=== PATIENT | female | born 1935 | race Caucasian/White ===

== ENCOUNTER → 2020-08-03 10:00 | Outpatient (BNVA) | payer MEDICARE, SELFPAY | PROVIDERS: Family Provider Internal Medicine; PCP Internal Medicine; Visit Provider Internal Medicine | DX: I10 Essential (primary) hypertension (principal); R54 Age-related physical debility | CPT/HCPCS: 80053; 83550; 84443; 85025 ==

== ENCOUNTER 2020-08-24 06:00 | Outpatient (RCR) | payer MEDICARE, SELFPAY | END 2020-09-20 23:59 | disposition home or self-care (01) | LOC: TPT 06:00 | PROVIDERS: PCP Internal Medicine; Referring Provider Internal Medicine; Visit Provider Internal Medicine | DX: R54 Age-related physical debility (principal) | CPT/HCPCS: 97110; 97112; 97116; 97162 ==

== ENCOUNTER 2020-09-21 06:00 | Outpatient (RCR) | payer MEDICARE, SELFPAY | END 2020-10-20 23:59 | disposition home or self-care (01) | LOC: TPT 06:00 | PROVIDERS: PCP Internal Medicine; Referring Provider Internal Medicine; Visit Provider Internal Medicine | DX: R54 Age-related physical debility (principal) | CPT/HCPCS: 97110; 97116 ==

== ENCOUNTER 2021-03-01 10:12 | Outpatient (CLI) | payer MEDICARE, SELFPAY ==
--- NOTE | 2021-03-01 10:20 | XRR_ITS ---
PROCEDURE INFORMATION: Exam: XR Right Tibia and Fibula Exam date and time: 03/01/2021 10:20 AM Age: 85 years old Clinical indication: Injury or trauma; Fall; Blunt trauma; Right; Patient HX: Fell 10 days ago; C/O RT hip and knee pain; Additional info: Fall at home TECHNIQUE: Imaging protocol: XR Right tibia and fibula. Views: 2 views. Total images: 2 COMPARISON: No relevant prior studies available. FINDINGS: Bones/joints: No radiographically visible fracture. Advanced osteoporosis. Soft tissues: Unremarkable. XR/XR tibia fibula RT 2V [id number] IMPRESSION: No radiographically visible fracture. Radiation Dose CTDIVOL = (mGy): DLP = (mGy-cm)
--- NOTE | 2021-03-01 10:20 | XR_ITS ---
WS: [id number] RIGHT KNEE: 2 VIEW(S) TECHNIQUE: AP and lateral. HISTORY: Fall at home COMPARISON: None available. No fracture or dislocation. No joint space narrowing or osteophytes. No joint effusion. Mild osteopenia. Extensive peripheral arterial calcifications. XR/XR knee RT 1-2V [id number] IMPRESSION: Osteopenia with no fracture.
--- NOTE | 2021-03-01 10:20 | XRR_ITS ---
PROCEDURE INFORMATION: Exam: XR Right Hip Exam date and time: 03/01/2021 10:20 AM Age: 85 years old Clinical indication: Injury or trauma; Fall; Blunt trauma (contusions or hematomas); Right; Patient HX: Fell 10 days ago; C/O pain RT hip; Additional info: Fall at home TECHNIQUE: Imaging protocol: XR Right hip. Views: 1 view hip with pelvis when performed. Total images: 2 COMPARISON: No relevant prior studies available. FINDINGS: Bones/joints: No visible fracture, subluxation, or dislocation. No visible significant degenerative disease. Advanced osteoporosis. Soft tissues: Unremarkable. XR/XR hip RT 2-3V wo/w pel* [id number] IMPRESSION: No visible fracture. Radiation Dose CTDIVOL = (mGy): DLP = (mGy-cm)
== END 2021-03-01 10:13 | disposition home or self-care (01) ==
PROVIDERS: PCP Internal Medicine; Visit Provider Internal Medicine
DX: M25.551 Pain in right hip (principal); M25.561 Pain in right knee; W19.XXXA Unspecified fall, initial encounter; M85.861 Other specified disorders of bone density and structure, right lower leg
CPT/HCPCS: 73502; 73560; 73590

== ENCOUNTER 2023-03-10 16:54 | Observation (INO) | payer MEDICARE, SELFPAY ==
[2023-03-10] VITALS (7 sets, daily range): BP systolic 149–226; BP diastolic 84–138; PULSE 80–126; RESP 16–23; TEMP 36.6; O2SAT 92–97; BMI 25.4; BMI 18.1
--- NOTE | 2023-03-10 17:05 | ECG_ITS ---
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 Measurements Intervals [place] Rate: 111 P: 86 KS: 172 QRS: 38 QRSD: 83 T: 89 QT: 305 QTc: 416 Interpretive Statements SINUS TACHYCARDIA WITH OCCASIONAL SUPRAVENTRICULAR PREMATURE COMPLEXES LEFT VENTRICULAR HYPERTROPHY AND ST-T CHANGE [VOLTAGE CRITERIA PLUS ST/T ABNORMALITY] Compared to ECG 03/05/2018 10:06:16 ST (T wave) deviation now present Sinus rhythm no longer present Electronically Signed On 03-11-2023 22:14:44 [employer] DEPOSITING MACHINE OPERATOR by Christal Dior M.D. [id number]
--- NOTE | 2023-03-10 17:06 | CTR_ITS ---
PROCEDURE INFORMATION: Exam: CT Cervical Spine Without Contrast Exam date and time: 03/10/2023 5:19 PM Age: 87 years old Clinical indication: Injury or trauma; Fall; Other: Unknown; Additional info: Fall, hit top of head TECHNIQUE: Imaging protocol: Computed tomography of the cervical spine without contrast. Radiation optimization: All CT scans at this facility use at least one of these dose optimization techniques: automated exposure control; mA and/or kV adjustment per patient size (includes targeted exams where dose is matched to clinical indication); or iterative reconstruction. REPORTING DATA: Count of CT and Cardiac NM exams in prior 12 months: This patient has received 0 known CTs and 0 known cardiac nuclear medicine studies in the 12 months prior to the current study. COMPARISON: CT head wo con* [id number] 03/10/2023 5:19 PM RADIATION DOSE METRICS: Total DLP (mGy-cm): 447.7 FINDINGS: Bones/joints: Cervical curvature and alignment is unremarkable. Degenerative changes mid-lower cervical spine with disc space narrowing and endplate osteophytic lipping. No severe stenosis of the central canal or neural foramina evident. No fracture, dislocation or traumatic spondylolisthesis detected. Lungs: Lung apices are normal. Soft tissues: Unremarkable. CT/CT cervical spin wo con* [id number] IMPRESSION: No acute bony abnormalities.
--- NOTE | 2023-03-10 17:06 | XRR_ITS ---
PROCEDURE INFORMATION: Exam: XR Left Shoulder Exam date and time: 03/10/2023 5:53 PM Age: 87 years old Clinical indication: Injury or trauma; Patient HX: Lt shoulder/upper arm pain post fall TECHNIQUE: Imaging protocol: Radiologic exam of the left shoulder. Views: 2 or more views. COMPARISON: MR shoulder LT wo/w con [id number] 05/01/2016 10:01 AM FINDINGS: Bones/joints: There is an obliquely oriented fracture through the proximal shaft of the left humerus that extends for 6 cm with 1 cm distraction and medial displacement of the distal fracture component. Remainder the visualized osseous structures are intact. There is no dislocation. Soft tissues: Normal. XR/XR shoulder LT min 2V* [id number] IMPRESSION: Acute, displaced obliquely oriented fracture proximal humeral shaft.
--- NOTE | 2023-03-10 17:06 | CTR_ITS ---
PROCEDURE INFORMATION: Exam: CT Head Without Contrast Exam date and time: 03/10/2023 5:19 PM Age: 87 years old Clinical indication: Injury or trauma; Fall; Other: Unknown; Additional info: Fall, hit top of head, 81mg asa TECHNIQUE: Imaging protocol: Computed tomography of the head without contrast. Radiation optimization: All CT scans at this facility use at least one of these dose optimization techniques: automated exposure control; mA and/or kV adjustment per patient size (includes targeted exams where dose is matched to clinical indication); or iterative reconstruction. REPORTING DATA: Count of CT and Cardiac NM exams in prior 12 months: This patient has received 0 known CTs and 0 known cardiac nuclear medicine studies in the 12 months prior to the current study. COMPARISON: CT head wo con* [id number] 03/20/2018 7:29 PM RADIATION DOSE METRICS: Total DLP (mGy-cm): 901.3 FINDINGS: Brain: There is no evidence of intracranial hemorrhage. There are no areas of mass effect, edema or midline shift. There are diffuse indistinct areas of decreased attenuation involving the periventricular white matter likely secondary to chronic white matter microvascular changes. There is age-related cerebral volume loss responsible for prominence of the cortical sulci. Cerebral ventricles: There is mild proportionate ventricular dilatation believed secondary to age related cerebral volume loss. Paranasal sinuses: Visualized sinuses are unremarkable. No fluid levels. Mastoid air cells: Visualized mastoid air cells are well aerated. Bones/joints: Unremarkable. No acute fracture. Soft tissues: Unremarkable. CT/CT head wo con* [id number] IMPRESSION: No acute intracranial abnormalities.
--- NOTE | 2023-03-10 17:10 | W.ED.EXTPRO ---
Documented by User: ROCKY Ambriz 03/10/23 21:36 HPI - Extremity Problem General: Chief complaint: Extremity Injury, Upper Stated complaint: LEFT SHOULDER/RIBS PAIN S/P FALL Time Seen by Provider: 03/10/23 16:58 Source: patient and EMS Mode of arrival: EMS Limitations: no limitations History of Present Illness: Patient presents to the emergency department today brought by EMS for evaluation treatment of injury sustained after falling at home. EMS reports patient was in her bedroom and went to reach for a hairbrush when she accidentally fell. Patient fell between her bed and the dresser. In the fall, patient states she impacted the top of her head and is tender in this area. However, she is more concerned about left shoulder and left rib pain. Patient presents unwilling to perform any range of motion of the left arm. She is keeping her elbow bent and closely to her side. She is still moving her fingers and is able to grasp with her left hand. EMS reports providing 4 mg of Zofran and 50 of fentanyl for pain. Patient was found to be extremely hypertensive and tachycardic. Patient does not have any previous history of high blood pressure and only reported medications being an 81 mg aspirin and duloxetine. They note patient has a history of easy bruising and is found to have a half dollar size hematoma to the right anterior, distal upper arm approximately 4 cm superior to the AC space. They indicate this was an old injury. Patient appears to have a very small abrasion to the posterior right elbow with a little bit of bleeding. Patient denies right-sided chest pain or abdominal pains. She has issues with incontinence and is currently in an adult diaper. Review of Systems General: Reports: 10 or more systems reviewed and unremarkable except in HPI and below PFSH ED PFSH: Medical History (Updated 03/11/23 @ 13:53 by Tamra Bender MD) Cystocele with prolapse Hypertension Urge incontinence of urine Surgical History (Updated 03/10/23 @ 22:06 by Miguel Casper MD) History of appendectomy Hx of breast biopsy Hx of hernia repair Hx of hysterectomy Family History Mother Diabetes Social History Smoking and tobacco/nicotine status: former use of tobacco/nicotine Quit status (tobacco/nicotine): has quit using Year quit tobacco: 2011 Second hand smoke exposure: No Alcohol intake: current Alcohol intake frequency: few times a week Alcohol type: wine Substance/Drug Use: never Physical Exam Const: COMMON NORMALS: patient oriented x3 and alert OTHER: Patient does not appear toxic and is able to answer her own questions HENMT: COMMON NORMALS: normocephalic, atraumatic and hearing grossly normal bilaterally HEAD & SCALP: normocephalic and atraumatic Eye: COMMON NORMALS: Equal, round and reactive pupils present, EOMs intact bilaterally and conjunctivae normal CONJUNCTIVA: Yes conjunctivae normal PUPIL: Yes Equal, round and reactive pupils present Neck/C-Spine: OTHER: Patient indicated no tenderness on palpation in the cervical vertebral region. No palpable step-offs. Lymph: LYMPHATIC: no lymphadenopathy noted Chest: OTHER: Unable to evaluate location of pain to the left chest as the patient's left arm is covering this area and she refuses to move it. Patient was nontender on palpation to the ribs on the right side and nontender to the sternum. Resp: COMMON NORMALS: normal respiratory effort, No retractions and No use of accessory muscles Cardio: COMMON NORMALS: regular rate RATE: regular rate GI: OTHER: Abdomen was nontender. Patient with an extremely thin frame and scaphoid abdomen. Patient did request abdominal exam be deferred due to her need to urinate and palpation worsening her urge to urinate. Back/Pelvis: OTHER: Patient was not tender on palpation to the pelvis or hips. Extremity: NARRATIVE EXTREMITY EXAM: Patient is moving her legs bilaterally and her right arm however, patient refuses to move left arm. Left arm is With elbow fully bent and held closely to her side. 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 Neuro: COMMON NORMALS: patient oriented x3 SENSORIUM/ORIENTATION: Yes alert Psych: COMMON NORMALS: mental status grossly normal, Normal thought process present, cooperative and normal affect THOUGHT PROCESS: Normal thought process present Skin: COMMON NORMALS: no rashes or lesions noted and turgor normal NARRATIVE SKIN EXAM: Patient with various stages of bruising noted on her extremities. Patient with a quarter dollar size hematoma noted to the anterior distal right upper arm. Patient with a small abrasion to the posterior right elbow. GENERAL SKIN EXAM: no rashes or lesions noted and turgor normal Course Vital Signs: Vital signs: Vital Signs Temperature 97.4 F L 03/11/23 16:42 Pulse Rate 67 03/11/23 16:42 Respiratory Rate 16 03/11/23 16:42 Blood Pressure 122/71 03/11/23 16:42 Pulse Oximetry 97 03/11/23 16:42 Oxygen Delivery Me thod Room Air 03/11/23 16:42 MDM - Extremity (Nontraumatic) Medical Decision Making Patient presented to the ER via EMS for multiple injuries sustained after falling at home today. Given the reports of impact to the patient's head we did CT the head and neck. We also requested imaging of the patient's left shoulder and left ribs. CT of head and neck were negative but, there was findings of a mid humeral shaft fracture. Due to limited ambulation from her injuries and urinary incontinence, indwelling James catheter was placed. However, urine in the bag is obvious for gross hematuria. They did not notice any bleeding or blood in her urine today until the catheter was placed. Most likely secondary to trauma. Patient presented with elevated blood pressure readings. She has no previous history of high blood pressure but, was in quite a bit of pain. Patient's blood pressure has come down quite a bit. Upon my last personal evaluation, systolic was in the 160s and patient appeared much more comfortable. Patient received fentanyl and Dilaudid for her pain and is currently indicating a level of comfort and not requesting anything else for pain. Patient's is also elderly and in a wheelchair. Patient is most likely going to require a full assist at home so, I did discuss the case with both Dr. Blankenship and Dr. Billy and Dr. Billy recommended calling the hospitalist for admission. I reached out and spoke with Dr. Cross but, as patient does not have any significant underlying medical issues, he indicated he would be a consult but patient should be admitted under orthopedic services. I then called Dr. Strong to discuss the patient's injuries and recommendation by hospitalist for Ortho admit and he indicated patient did not require admission at this time. Discussed the case with Dr. Blankenship as I am very concerned that the patient will not be able to recuperate at home. Patient will require full assist and was already a concern for injuries due to falling and now with a splint, would be at higher risk. Dr. Blankenship indicated he would reach out and speak with the hospitalist services again to discuss. He indicated that after speaking with the hospitalist, they were willing to admit. Orthopedics was notified for a consult on the floor as well. Patient and family were notified of the admission and seemed in agreement to the treatment plan. Differential Diagnosis Unlikely herpes zoster, gout, cellulitis, superficial thrombophlebitis, deep venous thrombosis of upper extremity, lower extremity edema or deep vein thrombosis of lower extremity Lab Data 03/11/23 02:26 03/11/23 02:26 Radiology Impressions Cervical Spine CT 03/10/23 17:06 IMPRESSION: No acute bony abnormalities. Head CT 03/10/23 17:06 IMPRESSION: No acute intracranial abnormalities. Shoulder X-Ray 03/10/23 17:06 IMPRESSION: Acute, displaced obliquely oriented fracture proximal humeral shaft. Ribs X-Ray 03/10/23 17:17 IMPRESSION: 1. Acute displaced fracture left humeral shaft. 2. No displaced left rib fractures detected. 3. Stable 2 cm pulmonary nodule right mid lung zone likely benign. Humerus X-Ray 03/10/23 17:58 IMPRESSION: Acute displaced fracture proximal shaft left humerus. Humerus CT 03/10/23 21:00 IMPRESSION: Acute humeral shaft fracture, as above. Hip X-Ray 03/11/23 07:52 IMPRESSION: Questionable fractures of the left superior and inferior pubic rami. Recommend CT pelvis to further assess. Laboratory Results WBC 8.24 10^3/uL (3.29-11.43) 03/10/23 17:11 RBC 4.48 10^6/uL (3.85-5.65) 03/10/23 17:11 Hgb 12.70 g/dL (11.27-16.99) 03/10/23 17:11 Hct 38.6 % (36-47) 03/10/23 17:11 MCV 86.2 fl (85-98) 03/10/23 17:11 MCH 28.3 pg (27-33) 03/10/23 17:11 MCHC 32.9 g/dL (30-55) 03/10/23 17:11 RDW 14.6 % (12.1-15.1) 03/10/23 17:11 Plt Count 297 10^3/cmm (157-399) 03/10/23 17:11 MPV 9.2 fL (7.4-10.4) 03/10/23 17:11 Neut % (Auto) 54.0 % 03/10/23 17:11 Lymph % (Auto) 31.9 % 03/10/23 17:11 [place] % (Auto) 5.3 % 03/10/23 17:11 Eos % (Auto) 7.6 % 03/10/23 17:11 Baso % (Auto) 0.8 % 03/10/23 17:11 Neut # (Auto) 4.44 10^3/uL (1.8-7.7) 03/10/23 17:11 Lymph # (Auto) 2.6 10^3/uL (0.8-4.8) 03/10/23 17:11 [place] # (Auto) 0.4 10^3/uL (0.2-0.9) 03/10/23 17:11 Eos # (Auto) 0.6 10^3/uL (0.0-0.8) 03/10/23 17:11 Baso # (Auto) 0.1 10^3/uL (0.0-0.1) 03/10/23 17:11 Nucleated RBC % (auto) 0 % 03/10/23 17:11 Nucleated RBCs # 0.0 /100WBC 03/10/23 17:11 Sodium 139 mmol/L (136-145) 03/10/23 17:11 Potassium 3.7 mmol/L (3.5-5.1) 03/10/23 17:11 Chloride 104 mmol/L (98-107) 03/10/23 17:11 Carbon Dioxide 21 mmol/L (22-29) L 03/10/23 17:11 Anion Gap 17.7 (5-19) 03/10/23 17:11 BUN 20 mg/dL (8-23) 03/10/23 17:11 Creatinine 0.8 mg/dL (0.5-0.9) 03/10/23 17:11 GFR Calculation Not Reportable 03/10/23 17:11 Glucose 104 mg/dL (65-115) 03/10/23 17:11 Calculated Osmolality 291 mOsm/kg (285-295) 03/10/23 17:11 Calcium 9.1 mg/dL (8.5-10.5) 03/10/23 17:11 Iron 73 ug/dL (37-145) 03/10/23 17:11 TIBC 234 mcg/dl 03/10/23 17:11 % Saturation 31.1 % (20-50) 03/10/23 17:11 Unsat Iron Binding 161 ug/dL (112-347) 03/10/23 17:11 Total Bilirubin 0.4 mg/dL (0.15-1.2) 03/10/23 17:11 AST 15 U/L (0-32) 03/10/23 17:11 ALT 6 U/L (0-33) 03/10/23 17:11 Alkaline Phosphatase 110 U/L (35-105) H 03/10/23 17:11 Total Protein 7.5 g/dL (6.6-8.7) 03/10/23 17:11 Albumin 4.3 g/dL (3.5-5.2) 03/10/23 17:11 Globulin 3.2 g/dL (1.3-4.6) 03/10/23 17:11 Vitamin B12 437 pg/mL (232-1245) 03/10/23 17:11 TSH 6.52 uIU/mL (0.27-4.20) H 03/10/23 17:11 Urine Color Red (Yellow) A 03/10/23 17:45 Urine Appearance Cloudy (CLEAR) A 03/10/23 17:45 Urine pH 8 (5-7) H 03/10/23 17:45 Ur Specific [place] 1.015 (1.005-1.030) 03/10/23 17:45 Urine Protein 3+ (Negative) H 03/10/23 17:45 Urine Glucose (UA) Norm (Normal) 03/10/23 17:45 Urine Ketones Negative (Negative) 03/10/23 17:45 Urine Blood 3+ (Negative) H 03/10/23 17:45 Urine Nitrate Negative (Negative) 03/10/23 17:45 Urine Bilirubin Neg (Negative) 03/10/23 17:45 Prot Sulfosalicylic Acd Positive (Negative) 03/10/23 17:45 Urine Urobilinogen Norm mg/dL (Negative) 03/10/23 17:45 Ur Leukocyte Esterase Trace (Negative) H 03/10/23 17:45 Urine RBC >100 /hpf (0-2) H 03/10/23 17:45 Urine WBC 10-15 /hpf (0-5) H 03/10/23 17:45 Ur Squamous Epith Cells Rare /hpf (0-5) 03/10/23 17:45 Amorphous Sediment Not Reportable 03/10/23 17:45 Urine Bacteria 2+ /hpf (NONE) H 03/10/23 17:45 All radiology interpretation(s) finalized by discharge Discharge Plan Discharge Patient Disposition: Admitted As Inpatient Admit Provider: Miguel Casper Clinical Impression: Closed left humeral fracture Condition: Stable Coding Level of Care Code ED Label Drier for Chg Fwd Documented by User: Héctor Blankenship, 03/11/23 17:38 HPI - Extremity Problem General: Chief complaint: Extremity Injury, Upper Stated complaint: LEFT SHOULDER/RIBS PAIN S/P FALL Time Seen by Provider: 03/10/23 16:58 [facility] ED PFSH: Medical History (Updated 03/11/23 @ 13:53 by Tamra Bender MD) Cystocele with prolapse Hypertension Urge incontinence of urine Surgical History (Updated 03/10/23 @ 22:06 by Miguel Casper MD) History of appendectomy Hx of breast biopsy Hx of hernia repair Hx of hysterectomy Family History Mother Diabetes Social History Smoking and tobacco/nicotine status: former use of tobacco/nicotine Quit status (tobacco/nicotine): has quit using Year quit tobacco: 2011 Second hand smoke exposure: No Alcohol intake: current Alcohol intake frequency: few times a week Alcohol type: wine Substance/Drug Use: never Course Vital Signs: Vital signs: Vital Signs Temperature 97.4 F L 03/11/23 16:42 Pulse Rate 67 03/11/23 16:42 Respiratory Rate 16 03/11/23 16:42 Blood Pressure 122/71 03/11/23 16:42 Pulse Oximetry 97 03/11/23 16:42 Oxygen Delivery Me thod Room Air 03/11/23 16:42 MDM - Extremity (Nontraumatic) Medical Decision Making Patient presented to the ER via EMS for multiple injuries sustained after falling at home today. Given the reports of impact to the patient's head we did CT the head and neck. We also requested imaging of the patient's left shoulder and left ribs. CT of head and neck were negative but, there was findings of a mid humeral shaft fracture. Due to limited ambulation from her injuries and urinary incontinence, indwelling James catheter was placed. However, urine in the bag is obvious for gross hematuria. They did not notice any bleeding or blood in her urine today until the catheter was placed. Most likely secondary to trauma. Patient presented with elevated blood pressure readings. She has no previous history of high blood pressure but, was in quite a bit of pain. Patient's blood pressure has come down quite a bit. Upon my last personal evaluation, systolic was in the 160s and patient appeared much more comfortable. Patient received fentanyl and Dilaudid for her pain and is currently indicating a level of comfort and not requesting anything else for pain. Patient's is also elderly and in a wheelchair. Patient is most likely going to require a full assist at home so, I did discuss the case with both Dr. Blankenship and Dr. Billy and Dr. Billy recommended calling the hospitalist for admission. I reached out and spoke with Dr. Cross but, as patient does not have any significant underlying medical issues, he indicated he would be a consult but patient should be admitted under orthopedic services. I then called Dr. Strong to discuss the patient's injuries and recommendation by hospitalist for Ortho admit and he indicated patient did not require admission at this time. Discussed the case with Dr. Blankenship as I am very concerned that the patient will not be able to recuperate at home. Patient will require full assist and was already a concern for injuries due to falling and now with a splint, would be at higher risk. Dr. Blankenship indicated he would reach out and speak with the hospitalist services again to discuss. He indicated that after speaking with the hospitalist, they were willing to admit. Orthopedics was notified for a consult on the floor as well. Patient and family were notified of the admission and seemed in agreement to the treatment plan. This patient was originally seen by Mrs. Drew PA-C. I agree with her history, evaluation, and treatment. Lab Data 03/11/23 02:26 03/11/23 02:26 Radiology Impressions Cervical Spine CT 03/10/23 17:06 IMPRESSION: No acute bony abnormalities. Head CT 03/10/23 17:06 IMPRESSION: No acute intracranial abnormalities. Shoulder X-Ray 03/10/23 17:06 IMPRESSION: Acute, displaced obliquely oriented fracture proximal humeral shaft. Ribs X-Ray 03/10/23 17:17 IMPRESSION: 1. Acute displaced fracture left humeral shaft. 2. No displaced left rib fractures detected. 3. Stable 2 cm pulmonary nodule right mid lung zone likely benign. Humerus X-Ray 03/10/23 17:58 IMPRESSION: Acute displaced fracture proximal shaft left humerus. Humerus CT 03/10/23 21:00 IMPRESSION: Acute humeral shaft fracture, as above. Hip X-Ray 03/11/23 07:52 IMPRESSION: Questionable fractures of the left superior and inferior pubic rami. Recommend CT pelvis to further assess. Laboratory Results WBC 8.24 10^3/uL (3.29-11.43) 03/10/23 17:11 RBC 4.48 10^6/uL (3.85-5.65) 03/10/23 17:11 Hgb 12.70 g/dL (11.27-16.99) 03/10/23 17:11 Hct 38.6 % (36-47) 03/10/23 17:11 MCV 86.2 fl (85-98) 03/10/23 17:11 MCH 28.3 pg (27-33) 03/10/23 17:11 MCHC 32.9 g/dL (30-55) 03/10/23 17:11 RDW 14.6 % (12.1-15.1) 03/10/23 17:11 Plt Count 297 10^3/cmm (157-399) 03/10/23 17:11 MPV 9.2 fL (7.4-10.4) 03/10/23 17:11 Neut % (Auto) 54.0 % 03/10/23 17:11 Lymph % (Auto) 31.9 % 03/10/23 17:11 [place] % (Auto) 5.3 % 03/10/23 17:11 Eos % (Auto) 7.6 % 03/10/23 17:11 Baso % (Auto) 0.8 % 03/10/23 17:11 Neut # (Auto) 4.44 10^3/uL (1.8-7.7) 03/10/23 17:11 Lymph # (Auto) 2.6 10^3/uL (0.8-4.8) 03/10/23 17:11 [place] # (Auto) 0.4 10^3/uL (0.2-0.9) 03/10/23 17:11 Eos # (Auto) 0.6 10^3/uL (0.0-0.8) 03/10/23 17:11 Baso # (Auto) 0.1 10^3/uL (0.0-0.1) 03/10/23 17:11 Nucleated RBC % (auto) 0 % 03/10/23 17:11 Nucleated RBCs # 0.0 /100WBC 03/10/23 17:11 Sodium 139 mmol/L (136-145) 03/10/23 17:11 Potassium 3.7 mmol/L (3.5-5.1) 03/10/23 17:11 Chloride 104 mmol/L (98-107) 03/10/23 17:11 Carbon Dioxide 21 mmol/L (22-29) L 03/10/23 17:11 Anion Gap 17.7 (5-19) 03/10/23 17:11 BUN 20 mg/dL (8-23) 03/10/23 17:11 Creatinine 0.8 mg/dL (0.5-0.9) 03/10/23 17:11 GFR Calculation Not Reportable 03/10/23 17:11 Glucose 104 mg/dL (65-115) 03/10/23 17:11 Calculated Osmolality 291 mOsm/kg (285-295) 03/10/23 17:11 Calcium 9.1 mg/dL (8.5-10.5) 03/10/23 17:11 Iron 73 ug/dL (37-145) 03/10/23 17:11 TIBC 234 mcg/dl 03/10/23 17:11 % Saturation 31.1 % (20-50) 03/10/23 17:11 Unsat Iron Binding 161 ug/dL (112-347) 03/10/23 17:11 Total Bilirubin 0.4 mg/dL (0.15-1.2) 03/10/23 17:11 AST 15 U/L (0-32) 03/10/23 17:11 ALT 6 U/L (0-33) 03/10/23 17:11 Alkaline Phosphatase 110 U/L (35-105) H 03/10/23 17:11 Total Protein 7.5 g/dL (6.6-8.7) 03/10/23 17:11 Albumin 4.3 g/dL (3.5-5.2) 03/10/23 17:11 Globulin 3.2 g/dL (1.3-4.6) 03/10/23 17:11 Vitamin B12 437 pg/mL (232-1245) 03/10/23 17:11 TSH 6.52 uIU/mL (0.27-4.20) H 03/10/23 17:11 Urine Color Red (Yellow) A 03/10/23 17:45 Urine Appearance Cloudy (CLEAR) A 03/10/23 17:45 Urine pH 8 (5-7) H 03/10/23 17:45 Ur Specific [place] 1.015 (1.005-1.030) 03/10/23 17:45 Urine Protein 3+ (Negative) H 03/10/23 17:45 Urine Glucose (UA) Norm (Normal) 03/10/23 17:45 Urine Ketones Negative (Negative) 03/10/23 17:45 Urine Blood 3+ (Negative) H 03/10/23 17:45 Urine Nitrate Negative (Negative) 03/10/23 17:45 Urine Bilirubin Neg (Negative) 03/10/23 17:45 Prot Sulfosalicylic Acd Positive (Negative) 03/10/23 17:45 Urine Urobilinogen Norm mg/dL (Negative) 03/10/23 17:45 Ur Leukocyte Esterase Trace (Negative) H 03/10/23 17:45 Urine RBC >100 /hpf (0-2) H 03/10/23 17:45 Urine WBC 10-15 /hpf (0-5) H 03/10/23 17:45 Ur Squamous Epith Cells Rare /hpf (0-5) 03/10/23 17:45 Amorphous Sediment Not Reportable 03/10/23 17:45 Urine Bacteria 2+ /hpf (NONE) H 03/10/23 17:45 Discharge Plan Discharge Patient Disposition: Admitted As Inpatient Admit Provider: Miguel Casper Clinical Impression: Closed left humeral fracture Condition: Stable Coding Level of Care Code ED Label Drier for Luigi Ramirez
[2023-03-10 17:15] LABS: Basophils # 0.1 10^3/uL (0.0-0.1); Basophils % 0.8 %; Eosinophils # 0.6 10^3/uL (0.0-0.8); Eosinophils % 7.6 %; Hematocrit 38.6 % (36-47); Lymphocytes # 2.6 10^3/uL (0.8-4.8); Lymphocytes % 31.9 %; Mean Corpuscular HGB Conc 32.9 g/dL (30-55); Mean Corpuscular Hemoglobin 28.3 pg (27-33); Mean Corpuscular Volume 86.2 fl (85-98); Mean Platelet Volume 9.2 fL (7.4-10.4); Monocytes # 0.4 10^3/uL (0.2-0.9); Monocytes % 5.3 %; Neutrophils # 4.44 10^3/uL (1.8-7.7); Nucleated Red Blood Cells % 0 %; Platelet Count 297 10^3/cmm (157-399); Red Blood Count 4.48 10^6/uL (3.85-5.65); Red Cell Distribution Width 14.6 % (12.1-15.1); White Blood Count 8.24 10^3/uL (3.29-11.43)
--- NOTE | 2023-03-10 17:17 | XRR_ITS ---
PROCEDURE INFORMATION: Exam: XR Left Ribs with PA Chest Exam date and time: 03/10/2023 6:03 PM Age: 87 years old Clinical indication: Injury or trauma; Rib area, left side; Swelling; Patient HX: Lt rib pain post fall TECHNIQUE: Imaging protocol: Radiologic exam of the left ribs with PA chest. Views: 3 views COMPARISON: CR XR chest 1V [id number] 03/20/2018 7:24 PM FINDINGS: Lungs: 2 cm circumscribed pulmonary nodule right mid lung zone unchanged from 2018 likely benign. Lung sepulveda are clear without infiltrates. Pleural spaces: Unremarkable. No pleural effusion. No pneumothorax. Heart/Mediastinum: Unremarkable. No cardiomegaly. Bones/joints: Acute obliquely oriented fracture proximal shaft left humerus. No displaced rib fractures detected. XR/XR ribs LT mn 3V w CXR1V [id number] IMPRESSION: 1. Acute displaced fracture left humeral shaft. 2. No displaced left rib fractures detected. 3. Stable 2 cm pulmonary nodule right mid lung zone likely benign.
[2023-03-10 17:37] LABS: Alanine Aminotransferase 6 U/L (0-33); Albumin Level 4.3 g/dL (3.5-5.2); Alkaline Phosphatase 110 U/L (35-105); Anion Gap 17.7 (5-19); Aspartate Amino Transferase 15 U/L (0-32); Blood Urea Nitrogen 20 mg/dL (8-23); Calcium 9.1 mg/dL (8.5-10.5); Carbon Dioxide 21 mmol/L (22-29); Chloride 104 mmol/L (98-107); Globulin 3.2 g/dL (1.3-4.6); Glucose 104 mg/dL (65-115); Osmolality Calculated 291 mOsm/kg (285-295); Potassium 3.7 mmol/L (3.5-5.1); Sodium 139 mmol/L (136-145); Total Bilirubin 0.4 mg/dL (0.15-1.2); Total Protein 7.5 g/dL (6.6-8.7)
[2023-03-10] MEDS: HYDROmorphone 1 mg/mL INJ 1 mL 0.5 MG IVP (17:54)
--- NOTE | 2023-03-10 17:58 | XRR_ITS ---
PROCEDURE INFORMATION: Exam: XR Left Humerus Exam date and time: 03/10/2023 5:59 PM Age: 87 years old Clinical indication: Injury or trauma; Patient HX: Lt shoulder/upper arm pain post fall TECHNIQUE: Imaging protocol: Radiologic exam of the left humerus. Views: 2 or more views. COMPARISON: CR XR shoulder LT min 2V* [id number] 03/10/2023 5:53 PM FINDINGS: Bones/joints: There is an acute obliquely oriented displaced fracture of the proximal humeral shaft with 1 cm distraction and medial displacement of the distal fracture component. Fracture extends for 6 cm in length. Remainder of the osseous structures are intact. Soft tissues: Normal. XR/[place] [id number] IMPRESSION: Acute displaced fracture proximal shaft left humerus.
[2023-03-10 18:06] LABS: Add Urine Microscopic? YES; Bilirubin Urine Neg (Negative); Blood Urine 3+ (Negative); Glucose Urine UA Norm (Normal); Ketones Urine Negative (Negative); Leukocyte Esterase Urine Trace (Negative); Nitrate Urine Negative (Negative); Protein Urine 3+ (Negative); RBC Urine >100 /hpf (0-2); Specific Gravity, Urine 1.015 (1.005-1.030); Urine Appearance Cloudy (CLEAR); Urine Color Red (Yellow); Urobilinogen Urine Norm (Negative); pH Urine 8 (5-7)
[2023-03-10 18:07] LABS: Add Urine Culture? Yes; Bacteria Urine 2+ /hpf; Squamous Epithelial Cell Urine RARE /hpf (0-5); Sulfosalicylic Acid Urine Positive (Negative)
--- NOTE | 2023-03-10 21:00 | CTR_ITS ---
PROCEDURE INFORMATION: Exam: CT Left Upper Extremity Without Contrast, Upper Arm Exam date and time: 03/10/2023 9:10 PM Age: 87 years old Clinical indication: Injury or trauma; Blunt trauma (contusions or hematomas); Arm, upper; Left; Patient HX: Fall with comminuted fracture of proximal humerus. ; Additional info: L humerus fracture TECHNIQUE: Imaging protocol: Computed tomography of the left upper extremity without contrast. Exam focused on the upper arm. Radiation optimization: All CT scans at this facility use at least one of these dose optimization techniques: automated exposure control; mA and/or kV adjustment per patient size (includes targeted exams where dose is matched to clinical indication); or iterative reconstruction. REPORTING DATA: Count of CT and Cardiac NM exams in prior 12 months: This patient has received 0 known CTs and 0 known cardiac nuclear medicine studies in the 12 months prior to the current study. COMPARISON: [place] [id number] 03/10/2023 5:59 PM RADIATION DOSE METRICS: Total DLP (mGy-cm): 910.52 FINDINGS: Bones/joints: Acute, mildly comminuted humeral shaft fracture with mild fracture foreshortening/overlap, approximately 1/2 shaft width dorsal displacement of the distal humeral shaft fragment and mild apex dorsal angulation. Surrounding soft tissue swelling/hematoma. Glenohumeral, ulnotrochlear, and radiocapitellar alignment grossly preserved. Decreased osseous mineralization. Multifocal osteoarthritis. Soft tissues: See Bones/joints finding. CT/CT humerus LT wo con* [id number] IMPRESSION: Acute humeral shaft fracture, as above.
--- NOTE | 2023-03-10 22:03 | PM.HP ---
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 She tried calling her PCP but could not get through and pain was not subsided so presented to the ER today. In the ER she was found to have left acute displaced humeral fracture. On presentation to the ER patient was tachycardic and hypotensive with systolic blood pressure more than 200 which normalized after she received pain medication. Orthopedic surgery was consulted and hospitalist service was requested for pain management. Review of Systems General: Reports: 10 or more systems reviewed and unremarkable except in HPI and below Const: Denies: fever(s), chills, body aches, change in appetite, change in weight, malaise, night sweats, diaphoresis, change in sleep pattern, daytime sleepiness or snoring Eyes: Denies: change in vision, blurry vision, photophobia, eye discomfort or eye discharge ENMT: Denies: throat pain, enlarged tonsils, hoarseness, mouth pain, oral sores, dry mouth, tinnitus, nasal congestion or post nasal drip Card: Denies: chest pain, palpitations, irregular heart rhythm, edema, swelling of feet/ankles, lightheadedness, syncope, pre-syncope, dyspnea on exertion, orthopnea, leg pain with exertion or acrocyanosis Resp: Denies: dyspnea, productive cough, non-productive cough, wheezing, stridor, pain on inspiration, change in phlegm color, hemoptysis or chest congestion GI: Denies: abdominal pain, nausea, vomiting, hematemesis, coffee ground emesis, dysphagia, heartburn, diarrhea, constipation, bloating, GI cramping, change in bowel habits, pain on defecation, hematochezia or melena : Denies: flank pain, dysuria, urinary frequency, urinary urgency, urinary hesitancy, nocturia or hematuria Musc: Denies: neck pain, back pain, extremity pain, joint pain, joint swelling, joint redness, joint stiffness or limited range of motion Neuro: Denies: headache(s), numbness in extremities, weakness in extremities, sensory changes, lack of coordination, difficulty walking, frequent falls, dizziness, vertigo, confusion, Slurred speech present, difficulty communicating thoughts or seizure-like activity Psych: Denies: anxiety, depression, mood swings, panic attacks, hopelessness or irritability Endo: Denies: polyuria, polydipsia, tired all the time, cold intolerance, excessive sweating, flushing or heat intolerance Baldomero/Lymph: Denies: easy bruising or easy bleeding All/Imm: Denies: tongue swelling, facial swelling or acute wheezing Medications/Allergies Home Medications Medication Instructions Recorded Confirmed Last Taken Type aspirin 325 mg tablet 325 mg PO DAILY 06/04/19 04/05/21 Unknown History methylprednisolone 4 mg tablets in See Rx Instructions PO PER PKG DIR 06/04/19 04/05/21 Unknown Rx a dose pack (Medrol (Aleksander)) #21 ea diphenhydramine HCl 25 mg capsule 25 mg PO .weekly PRN 07/01/19 04/05/21 Unknown History (Benadryl) ibuprofen 100 mg tablet (Advil) 200 mg PO .prn 07/01/19 04/05/21 Unknown History prednisone 20 mg tablet 20 mg PO .COMPLEX #10 tabs 07/01/19 04/05/21 Unknown Rx pantoprazole 40 mg tablet,delayed 40 mg PO QAM #90 tabs 03/01/21 04/05/21 Unknown Rx release Allergies Allergy/AdvReac Type Severity Reaction Status Date / Time acetaminophen Allergy Unknown Unknown Verified 04/05/21 09:10 Iodinated Contrast Media Allergy Unknown Unknown Verified 04/05/21 09:10 meperidine [From Demerol] Allergy ADR-Dizzine Verified 04/05/21 09:10 ss morphine Allergy ALGY-Swell Verified 04/05/21 09:10 Lip/Tongue/Throat quinine Allergy ALGY-Swell Verified 04/05/21 09:10 Lip/Tongue/Throat PFSH Acute PFSH: Medical History (Updated 03/10/23 @ 21:01 by Héctor Blankenship DO) Cystocele with prolapse Hypertension Urge incontinence of urine Surgical History (Updated 03/10/23 @ 22:06 by Miguel Casper MD) History of appendectomy Hx of breast biopsy Hx of hernia repair Hx of hysterectomy Family History Mother Diabetes Social History Smoking and tobacco/nicotine status: former use of tobacco/nicotine Quit status (tobacco/nicotine): has quit using Year quit tobacco: 2011 Second hand smoke exposure: No Alcohol intake: current Alcohol intake frequency: few times a week Alcohol type: wine Substance/Drug Use: never Vitals/I&O/Wt Last Vital Signs Temp 97.8 F 03/10/23 16:59 Pulse 111 H 03/10/23 21:00 Resp 20 H 03/10/23 21:00 BP 149/98 03/10/23 21:00 Pulse Ox 97 03/10/23 21:00 O2 Del Method Room Air 03/10/23 21:00 Weight last 48 hrs Weight 58.967 kg Physical Exam Narrative: General: No acute distress, AO x3, frail HEENT: PERRLA, pupils bilaterally equal and reactive Chest: Normal vesicular breath sounds, no added sounds, equal good air entry bilaterally CVS: S1-S2 regular, no murmurs, no tachycardia, no gallops, no rubs Abdomen: Soft, nontender, no organomegaly, bowel sounds present Neuro: No focal deficits, no facial deformity, AO x3, Extremity: Pulses bilaterally equal in upper limb, capillary refill normal Urinary Catheter Management: James: Cath Placed During This Visit: yes Urinary Catheter Date of Insertion: 03/10/23 Urinary Catheter Time of Insertion: 17:53 Data 03/10/23 17:11 03/10/23 17:11 A&P Assessment and plan (1) Fall: Appreciate various scans including CT head, cervical spine CT, humeral CT and x-ray appreciated. Concern for left humeral acute displaced fracture. Physical therapy evaluation. (2) Frailty: Check TSH, vitamin B12, folate, iron panel. (3) Closed left humeral fracture: Orthopedic surgery has been consulted from the ER. Most likely will need pain control and immobilization. Splint been applied in ER. Patient allergic to morphine. [place] 5 mg every 6 hours as needed, tramadol 50 mg every 6 hours as needed. (4) Hypertension: Goal blood pressure less than 140/90 mmHg. Patient currently hypotensive and tachycardic which could be secondary to pain. For now start patient on amlodipine 5 mg oral daily, metoprolol 25 mg twice daily. Will uptitrate as for goal blood pressures. Plan Hematuria: Most likely in setting of traumatic James catheterization. Monitor hemoglobin daily. Full code Regular diet Famotidine for PUD prophylaxis Heparin 5000 every 12 hourly for DVT prophylaxis. Discharge plan: Patient is at baseline wheelchair-bound, extremely frail, lives with an elderly and the son. Both family members requesting for possible placement to SNF. Patient would benefit from SNF for rehabitation and safety given presentation to the ER with fall. Discussed in detail with the patient. She will think about it further. PT evaluation and plan accordingly. Attestations Medical Necessity Statement*: Admit under observation for pain control in setting of acute displaced left humeral fracture post fall Diagnoses Fall W19.XXXA Frailty R54 Closed left humeral fracture S42.302A Hypertension I10
[2023-03-10 23:45] LABS: Thyroid Stimulating Hormone 6.52 uIU/mL (0.27-4.20)
--- NOTE | 2023-03-10 23:49 | XRR_ITS ---
PROCEDURE INFORMATION: Exam: XR Right Hip Exam date and time: 03/11/2023 12:59 AM Age: 87 years old Clinical indication: Right hip; Patient HX: C/O RT hip pain post fall last night. ; Additional info: Possible fracture, fall TECHNIQUE: Imaging protocol: Radiologic exam of the right hip. Views: 1 view hip with pelvis when performed. COMPARISON: CR XR hip RT 2-3V wo/w pel* [id number] 03/01/2021 10:38 AM FINDINGS: Bones/joints: Osseous demineralization. No acute fracture or dislocation. Soft tissues: See Vasculature finding. Vasculature: Vascular calcifications. Soft tissues otherwise unremarkable. XR/XR hip RT 1V wo/w pel [id number] IMPRESSION: No acute fracture.
[2023-03-10] MEDS: heparin 5,000 unit/mL INJ 1 mL 5000 UNIT SUBCUT (23:57)
[2023-03-11] VITALS (10 sets, daily range): BP systolic 103–122; BP diastolic 65–71; PULSE 67–88; RESP 14–19; TEMP 36.3–36.8; O2SAT 93–97; BMI 18.3
[2023-03-11] MEDS: TRAMadol 50 mg Tablet PO ×3 (00:13→21:21)
[2023-03-11 00:49] LABS: Free T4 Free Thyroxine 1.09 ng/dL (0.82-1.77); T3 Free 1.9 PG/ML (2.0-4.4)
[2023-03-11 04:13] LABS: Basophils # 0.1 10^3/uL (0.0-0.1); Basophils % 0.4 %; Eosinophils % 0.1 %; Hematocrit 35.8 % (36-47); Lymphocytes # 0.9 10^3/uL (0.8-4.8); Lymphocytes % 6.1 %; Mean Corpuscular HGB Conc 31.6 g/dL (30-55); Mean Corpuscular Hemoglobin 28.1 pg (27-33); Mean Corpuscular Volume 89.1 fl (85-98); Mean Platelet Volume 9.3 fL (7.4-10.4); Monocytes # 0.5 10^3/uL (0.2-0.9); Monocytes % 3.6 %; Neutrophils # 12.52 10^3/uL (1.8-7.7); Neutrophils % 89.3 %; Nucleated Red Blood Cells % 0 %; Platelet Count 327 10^3/cmm (157-399); Red Blood Count 4.02 10^6/uL (3.85-5.65); Red Cell Distribution Width 14.8 % (12.1-15.1); White Blood Count 14.03 10^3/uL (3.29-11.43)
[2023-03-11 04:24] LABS: Estmated Average Glucose 94; Hemoglobin A1C 4.9 % (4.0-6.0)
[2023-03-11 04:26] LABS: Iron 73 ug/dL (37-145); Percent Saturation 31.1 % (20-50); Total Iron Binding Capacity 234 mcg/dl; Unsaturated Iron Binding 161 ug/dL (112-347); Vitamin B12 437 pg/mL (232-1245)
[2023-03-11 04:28] LABS: Alanine Aminotransferase 6 U/L (0-33); Albumin Level 3.9 g/dL (3.5-5.2); Alkaline Phosphatase 106 U/L (35-105); Anion Gap 17.1 (5-19); Aspartate Amino Transferase 18 U/L (0-32); Blood Urea Nitrogen 25 mg/dL (8-23); Carbon Dioxide 22 mmol/L (22-29); Chloride 103 mmol/L (98-107); Glucose 131 mg/dL (65-115); Magnesium 2.1 mg/dL (1.7-2.3); Osmolality Calculated 292 mOsm/kg (285-295); Phosphorus 3.4 mg/dL (2.5-4.5); Potassium 4.1 mmol/L (3.5-5.1); Sodium 138 mmol/L (136-145); Total Bilirubin 0.5 mg/dL (0.15-1.2); Total Protein 6.9 g/dL (6.6-8.7)
[2023-03-11 04:29] LABS: Chol HDL Ratio 2.89 mg/dL (0.0-4.40); Cholesterol 176 mg/dL (0-200); HDL Cholesterol 61 mg/dL (60-100); LDL Cholesterol Calculated 101 mg/dL (50-129); LDL HDL Ratio 1.66 RATIO (0.00-3.22); Triglycerides 71 mg/dL (0-150)
[2023-03-11 04:49] LABS: Folate Level 19.1 ng/mL (4.8-37.3)
[2023-03-11] MEDS: pantoprazole DR 40 mg Tablet PO (05:07)
--- NOTE | 2023-03-11 07:40 | P.CONIM_ITS ---
Providers/Reason For Consult Consulting Physician/Specialty*: Orthopedics Reason for Consult*: Left arm left hip pain Attending Physician: Tamra Bender MD Primary Care Provider: Jamie Baumann MD History of Present Illness History of Present Illness Yesica Palencia is a 87 year old female fell on the evening of 03/10/2023 at home presented to the emergency room where x-rays confirmed a left humerus fracture with increased left hip pain she was admitted for more definitive management orthopedics was consulted. Patient was evaluated in room 254 bed 2 with no family present. She has a splint on her left upper extremity with continued left hip pain. She reports any movement of her left arm makes her pain much worse. This is her nondominant extremity. She also reports left hip pain with movement. Movement makes it sharp stabbing in nature. She denies any elbow or wrist pain denies any knee or ankle pain denies any low back pain. All of her symptoms are localized to the left arm and left hip. She describes the pain in both the humerus and the hip as sharp stabbing in nature. Rest gives her some temporary relief. Ranks the pain as 8 out of 10 on the pain scale. Patient denies any loss of consciousness in the fall. Review of Systems General: Reports: 10 or more systems reviewed and unremarkable except in HPI and below Const: Denies: fever(s), chills, body aches, change in appetite, change in weight, malaise, night sweats, diaphoresis, change in sleep pattern, daytime sleepiness or snoring Eyes: Denies: change in vision, blurry vision, photophobia, eye discomfort or eye discharge ENMT: Denies: throat pain, enlarged tonsils, hoarseness, mouth pain, oral sores, dry mouth, tinnitus, nasal congestion or post nasal drip Card: Denies: chest pain, palpitations, irregular heart rhythm, edema, swelling of feet/ankles, lightheadedness, syncope, pre-syncope, dyspnea on exertion, orthopnea, leg pain with exertion or acrocyanosis Resp: Denies: dyspnea, productive cough, non-productive cough, wheezing, stridor, pain on inspiration, change in phlegm color, hemoptysis or chest congestion GI: Denies: abdominal pain, nausea, vomiting, hematemesis, coffee ground emesis, dysphagia, heartburn, diarrhea, constipation, bloating, GI cramping, change in bowel habits, pain on defecation, hematochezia or melena : Denies: flank pain, dysuria, urinary frequency, urinary urgency, urinary hesitancy, nocturia or hematuria Musc: Denies: neck pain, back pain, extremity pain, joint pain, joint swelling, joint redness, joint stiffness or limited range of motion Neuro: Denies: headache(s), numbness in extremities, weakness in extremities, sensory changes, lack of coordination, difficulty walking, frequent falls, dizziness, vertigo, confusion, Slurred speech present, difficulty communicating thoughts or seizure-like activity Psych: Denies: anxiety, depression, mood swings, panic attacks, hopelessness or irritability Endo: Denies: polyuria, polydipsia, tired all the time, cold intolerance, excessive sweating, flushing or heat intolerance Baldomero/Lymph: Denies: easy bruising or easy bleeding All/Imm: Denies: tongue swelling, facial swelling or acute wheezing Medications/Allergies Home Medications Medication Instructions Recorded Confirmed Last Taken Type aspirin 325 mg tablet 325 mg PO DAILY 06/04/19 04/05/21 Unknown History methylprednisolone 4 mg tablets in See Rx Instructions PO PER PKG DIR 06/04/19 04/05/21 Unknown Rx a dose pack (Medrol ([place]ander)) #21 ea diphenhydramine HCl 25 mg capsule 25 mg PO .weekly PRN 07/01/19 04/05/21 Unknown History (Benadryl) ibuprofen 100 mg tablet (Advil) 200 mg PO .prn 07/01/19 04/05/21 Unknown History prednisone 20 mg tablet 20 mg PO .COMPLEX #10 tabs 07/01/19 04/05/21 Unknown Rx pantoprazole 40 mg tablet,delayed 40 mg PO QAM #90 tabs 03/01/21 04/05/21 Unknown Rx release Allergies Allergy/AdvReac Type Severity Reaction Status Date / Time acetaminophen Allergy Unknown ADR-Nausea Verified 03/11/23 01:05 Iodinated Contrast Media Allergy Unknown Unknown Verified 04/05/21 09:10 meperidine [From Demerol] Allergy ADR-Dizzine Verified 04/05/21 09:10 ss morphine Allergy ALGY-Swell Verified 04/05/21 09:10 Lip/Tongue/Throat quinine Allergy ALGY-Swell Verified 04/05/21 09:10 Lip/Tongue/Throat Current Medications Generic Name Dose Route Start Last Admin Trade Name Freq PRN Reason Stop Dose Admin Heparin Sodium (Porcine) 5,000 unit 03/10/23 23:12 03/10/23 23:57 Heparin 5,000 Unit/Ml Inj 1 Ml SUBCUT 5,000 unit Q12H BAILEY Administration Pantoprazole Sodium 40 mg 03/11/23 06:00 03/11/23 05:[address] 40 Mg Tablet PO 40 mg QAM BAILEY Administration Tramadol HCl 50 mg 03/10/23 23:49 03/11/23 00:13 Tramadol 50 Mg Tablet PO 50 mg Q6H PRN Administration MODERATE PAIN PFSH Acute PFSH: Medical History (Updated 03/11/23 @ 07:44 by Sp Harden PA-C) Cystocele with prolapse Hypertension Urge incontinence of urine Surgical History (Updated 03/10/23 @ 22:06 by Miguel Casper MD) History of appendectomy Hx of breast biopsy Hx of hernia repair Hx of hysterectomy Family History Mother Diabetes Social History Smoking and tobacco/nicotine status: former use of tobacco/nicotine Quit status (tobacco/nicotine): has quit using Year quit tobacco: 2012 Second hand smoke exposure: No Alcohol intake: current Alcohol intake frequency: few times a week Alcohol type: wine Substance/Drug Use: never Vitals/I&O/Wt Last Vital Signs Temp 97.5 F L 03/11/23 03:29 Pulse 82 03/11/23 06:00 Resp 15 03/11/23 03:29 BP 114/69 03/11/23 03:29 Pulse Ox 96 03/11/23 03:29 O2 Del Method Room Air 03/11/23 03:29 03/10/23 03/11/23 03/11/23 22:59 06:59 14:59 Output Total 600 / 600 Balance -600 / -600 Weight last 48 hrs Weight 94 lb Weight 93 lb 3 oz Weight 130 lb Physical Exam Narrative: Patient is alert and orient x3 has good general appearance normal mood and affect. She has palpable pain over the left shoulder and arm. There is a well- healed incision over the anterior aspect of the left proximal humerus but patient is on sure of what happened with that incision. She does have palpable pain over the left arm and humerus region she has a splint on currently. No palpable pain over the left elbow or wrist. She can flex and extend the left wrist without any problem. She is neurovascular intact. Fingers are warm with good cap refill radial pulses are palpable. She has full range of motion of the left upper extremity at the shoulder elbow and wrist. Full range of motion of the cervical spine. No palpable pain in the thoracic or lumbar region. She has a palpable pain over the left hip with a positive logroll. Nontender over the right. Negative logroll on the right. No palpable pain over the knees or ankles. She can dorsiflex and plantarflex problems skin is clear warm femoral good cap refill calves are supple and medial thigh tenderness. Dorsalis pedis posterior pulses are palpable. HENMT: COMMON NORMALS: normocephalic HEAD & SCALP: normocephalic Resp: COMMON NORMALS: normal respiratory effort Cardio: COMMON NORMALS: regular rate and regular rhythm RATE: regular rate RHYTHM: regular rhythm GI: COMMON NORMALS: Soft to palpation and non-tender PALPATION: Yes Soft to palpation : COMMON NORMALS: Yes no CVA tenderness BLADDER/KIDNEY EXAM: Yes no CVA tenderness Back/Pelvis: COMMON NORMALS: no CVA tenderness Psych: COMMON NORMALS: mental status grossly normal and cooperative Urinary Catheter Management: James: Cath Placed During This Visit: yes Urinary Catheter Date of Insertion: 03/10/23 Urinary Catheter Time of Insertion: 17:53 Data 03/11/23 02:26 03/11/23 02:26 Micro: Microbiology 03/10/23 Unknown Urine Culture - Preliminary Urine,Clean Catch Gram Negative Rods A&P Assessment and plan (1) Closed left humeral fracture: Continue the posterior splint at this time to the left arm. Recommend an MRI scan of her left hip without contrast Given the nature of her fall and her increased pain as well as a positive logroll on exam. Ice to the left arm. Continue bedrest until we obtain the MRI scan of her left hip. SCDs for DVT prophylaxis. More than 50% of the time spent with the patient today involved coordination of care, counseling and discussion of conservative versus surgical treatment options. Total amount of time spent with the patient was 41 minutes. (2) Left hip pain: Coding Level of Care Code Acute Code for Chg Fwd Diagnoses Closed left humeral fracture S42.302A Left hip pain M25.552 Time Spent (min) 41
--- NOTE | 2023-03-11 07:52 | XRR_ITS ---
PROCEDURE INFORMATION: Exam: XR Left Hip Exam date and time: 03/11/2023 10:53 AM Age: 87 years old Clinical indication: Injury or trauma; Fall; Blunt trauma (contusions or hematomas); Left; Hip; Additional info: Pain after fall TECHNIQUE: Imaging protocol: Radiologic exam of the left hip. Views: 1 view hip with pelvis when performed. COMPARISON: No relevant prior studies available. FINDINGS: Bones/joints: Questionable fractures of the left superior and inferior pubic rami. No acute femoral fracture is seen. Soft tissues: No gross soft tissue swelling. Vasculature: Atherosclerotic arterial calcifications are noted. XR/XR hip LT 1V wo/w pel [id number] IMPRESSION: Questionable fractures of the left superior and inferior pubic rami. Recommend CT pelvis to further assess.
[2023-03-11] MEDS: amlodipine 5 mg Tablet PO (08:30)
[2023-03-11] MEDS: metoprolol tartrate 25 mg Tablet PO ×2 (08:30→20:58)
[2023-03-11] MEDS: heparin 5,000 unit/mL INJ 1 mL 5000 UNIT SUBCUT ×2 (10:53→23:00)
--- NOTE | 2023-03-11 13:12 | PC.PHAR ---
pts verified pts medications
--- NOTE | 2023-03-11 13:51 | PM.PN ---
Subjective Subjective: Overnight labs and H&P reviewed. No acute interim events overnight. States pain is currently well controlled. Medications: Reviewed: Yes Vitals/I&O/Wt Last Vital Signs Temp 97.8 F 03/11/23 12:59 Pulse 67 03/11/23 12:59 Resp 18 03/11/23 12:59 BP 117/69 03/11/23 12:59 Pulse Ox 95 03/11/23 12:59 O2 Del Method Room Air 03/11/23 12:59 03/10/23 03/11/23 03/11/23 22:59 06:59 14:59 Intake Total 480 / 480 Output Total 600 / 600 Balance -600 / -600 480 / 480 Weight last 48 hrs Weight 42.638 kg Weight 42.269 kg Weight 58.967 kg Physical Exam Narrative: General: No acute distress, AO x3 HEENT: PERRLA, pupils bilaterally equal and reactive, pallors not present Chest: Normal vesicular breath sounds, no added sounds, equal good air entry bilaterally CVS: S1-S2 regular, no murmurs, no tachycardia, no gallops, no rubs Abdomen: Soft, nontender, no organomegaly, bowel sounds present Urinary Catheter Management: James: Cath Placed During This Visit: yes Urinary Catheter Date of Insertion: 03/10/23 Urinary Catheter Time of Insertion: 17:53 Data 03/11/23 02:26 03/11/23 02:26 Micro: Microbiology 03/10/23 Unknown Urine Culture - Preliminary Urine,Clean Catch Gram Negative Rods A&P Assessment and plan (1) Fall: Appreciate various scans including CT head, cervical spine CT, humeral CT and x-ray appreciated. Concern for left humeral acute displaced fracture. Physical therapy evaluation. Appreciate ortho consult, additional recommendation for hip MRI- planned for tomorrow (2) Frailty: Check TSH, vitamin B12, folate, iron panel. (3) Closed left humeral fracture: Orthopedic surgery has been consulted from the ER. Most likely will need pain control and immobilization. Splint been applied in ER. Patient allergic to morphine. [place] 5 mg every 6 hours as needed, tramadol 50 mg every 6 hours as needed. (4) Hypertension: Goal blood pressure less than 140/90 mmHg. Patient currently hypotensive and tachycardic which could be secondary to pain. For now start patient on amlodipine 5 mg oral daily, metoprolol 25 mg twice daily. Will uptitrate as for goal blood pressures. (5) UTI (urinary tract infection): UA + RBC, Trace leukocyte esterase , leukocytosis in the interim today URine cx GNR prelim start Ceftriaxone 1 g iv q24h Plan Hematuria: Most likely in setting of traumatic James catheterization. Monitor hemoglobin daily. Full code Regular diet Famotidine for PUD prophylaxis Heparin 5000 every 12 hourly for DVT prophylaxis. Discharge plan: Patient is at baseline wheelchair-bound, extremely frail, lives with an elderly and the son. Both family members requesting for possible placement to SNF. Patient would benefit from SNF for rehabitation and safety given presentation to the ER with fall. PT evaluation and plan accordingly. Attestations Medical Necessity Statement*: iv abx, await urine cx, MRI tomorrow, disposition planning Coding Level of Care Code Acute Code for Chg Fwd Straight Forward/Low MDM includes number and complexity of problems actively addressed during encounter, amount and/or complexity of data reviewed/ordered and described risk of complication, morbidity or mortality of management as documented Diagnoses Fall W19.XXXA Frailty R54 Closed left humeral fracture S42.302A Hypertension I10 UTI (urinary tract infection) N39.0
[2023-03-11] MEDS: cefTRIAXone 1,000 MG in sodium chloride 0.9% (plus) 50 ML 100 MG IV (15:12)
[2023-03-11] MEDS: quetiapine XR (24HR) 50 mg Tablet PO (20:58)
[2023-03-12] VITALS (8 sets, daily range): BP systolic 115–164; BP diastolic 62–74; PULSE 69–80; RESP 13–19; TEMP 36.4–36.8; O2SAT 90–97
[2023-03-12 03:24] LABS: Basophils % 0.4 %; Eosinophils # 0.3 10^3/uL (0.0-0.8); Eosinophils % 3.7 %; Hematocrit 31.2 % (36-47); Lymphocytes % 11.2 %; Mean Corpuscular HGB Conc 30.8 g/dL (30-55); Mean Platelet Volume 9.5 fL (7.4-10.4); Monocytes # 0.5 10^3/uL (0.2-0.9); Monocytes % 5.2 %; Neutrophils # 7.18 10^3/uL (1.8-7.7); Neutrophils % 79.1 %; Nucleated Red Blood Cells % 0 %; Platelet Count 245 10^3/cmm (157-399); Red Blood Count 3.43 10^6/uL (3.85-5.65); Red Cell Distribution Width 15.3 % (12.1-15.1); White Blood Count 9.09 10^3/uL (3.29-11.43)
[2023-03-12 03:50] LABS: Alanine Aminotransferase < 5 U/L (0-33); Albumin Level 3.5 g/dL (3.5-5.2); Alkaline Phosphatase 95 U/L (35-105); Anion Gap 16.5 (5-19); Aspartate Amino Transferase 18 U/L (0-32); Blood Urea Nitrogen 37 mg/dL (8-23); Calcium 8.7 mg/dL (8.5-10.5); Carbon Dioxide 23 mmol/L (22-29); Chloride 102 mmol/L (98-107); Glucose 117 mg/dL (65-115); Osmolality Calculated 294 mOsm/kg (285-295); Potassium 4.5 mmol/L (3.5-5.1); Sodium 137 mmol/L (136-145); Total Bilirubin 0.3 mg/dL (0.15-1.2); Total Protein 6.5 g/dL (6.6-8.7)
[2023-03-12] MEDS: duloxetine 20 mg Capsule PO (05:21)
[2023-03-12] MEDS: pantoprazole DR 40 mg Tablet PO (05:21)
--- NOTE | 2023-03-12 07:00 | MR_ITS ---
WS: [id number] EXAMINATION: MR hip LT wo con* [id number] ORDER DATE: 03/12/2023 12:14 PM COMPARISON: None. HISTORY: Fall with increased left hip pain CONTRAST: None. TECHNIQUE: Coronal STIR of the Pelvis. Coronal proton density, coronal T1, axial T2 fat sat, axial T1 , sagittal T2 fat sat, and sagittal T1 performed of the hip. After contrast, axial T1 fat sat, coron al T1 fat sat, and sagittal T1 fat sat were performed. FINDINGS: Some images limited by motion artifact. Osteopenia. Vascular calcification. Advanced degenerative arthritis LEFT hip. Normal bone marrow sign al in the LEFT femoral head and neck. No acute LEFT hip fractures. LEFT femoral head and neck are nor mal in appearance. Proximal femoral shaft appears normal. Normal bone marrow signal in the sacrum and bony pelvis. Normal bone marrow signal in the RIGHT hip with degenerative arthritis. Pubic rami some what difficult to evaluate due to motion and incompletely covered on some imaging. No visualized LEFT pubic rami fractures. IMPRESSION: Some images limited by patient motion 1. Normal bone marrow signal in the LEFT femoral head and neck. No acute LEFT hip fractures. 2. Normal bone marrow signal RIGHT hip. 3. Normal bone marrow signal in the sacrum and visualized bony pelvis. No visualized pubic rami frac tures although some images are limited.
--- NOTE | 2023-03-12 08:53 | US_ITS ---
WS: [id number] ULTRASOUND RENAL TECHNIQUE: Ultrasound examination of both kidneys. CLINICAL INFORMATION: MELITA COMPARISON: None. FINDINGS: Technically difficult study RIGHT: Right kidney is normal in size and appearance. Echogenicity: Increased Cortical thickness: 1.0 cm; Normal. Hydronephrosis: None. Perinephric fluid: None. Right kidney measures: 8.5 cm x 4.6 cm x 5.1 cm. LEFT: Left kidney is normal in size and appearance. Echogenicity: Increased cortical thickness: 1.0 cm; Normal. Hydronephrosis: None. Perinephric fluid: None. Left kidney measures: 7.0 cm x 3.4 cm x 4.0 cm. Normal visualized aorta. James catheter in place. IMPRESSION: Difficult study due to patient positioning and inability to move 1. No hydronephrosis in either kidney. 2. Increased renal echogenicity compatible with medical renal disease 3. James catheter in place. 4. No acute findings
[2023-03-12] MEDS: amlodipine 5 mg Tablet PO (09:45)
[2023-03-12] MEDS: metoprolol tartrate 25 mg Tablet PO ×2 (09:45→20:33)
[2023-03-12 09:47] LABS: Creatine Phosphokinase 122 U/L (26-192)
[2023-03-12] MEDS: TRAMadol 50 mg Tablet PO (12:25)
[2023-03-12] MEDS: heparin 5,000 unit/mL INJ 1 mL 5000 UNIT SUBCUT ×2 (13:45→23:15)
--- NOTE | 2023-03-12 14:52 | PM.PN ---
Subjective Subjective: Denies pain or any needs at the moment. Vitals/I&O/Wt Last Vital Signs Temp 97.5 F L 03/12/23 07:45 Pulse 77 03/12/23 07:45 Resp 19 H 03/12/23 07:45 BP 164/71 03/12/23 07:45 Pulse Ox 97 03/12/23 07:45 O2 Del Method Room Air 03/12/23 07:45 03/11/23 03/12/23 03/12/23 22:59 06:59 14:59 Intake Total 170 / 650 240 / 240 Output Total 125 / 125 100 / 225 Balance 45 / 525 -100 / 425 240 / 240 Weight last 48 hrs Weight 38.102 kg Weight 38.283 kg Weight 42.638 kg Weight 42.269 kg Weight 58.967 kg Physical Exam Narrative: Family at bedside. Hard of hearing. Const: COMMON NORMALS: alert GENERAL APPEARANCE: cooperative ORIENTATION/CONSCIOUSNESS: Yes awake HENMT: COMMON NORMALS: oropharynx normal Neck/C-Spine: COMMON NORMALS: no JVD Resp: COMMON NORMALS: normal respiratory effort and clear to auscultation bilaterally AUSCULTATION: clear to auscultation bilaterally Cardio: COMMON NORMALS: no JVD, regular rhythm, S1 normal heart sound present, S2 normal heart sound present and No murmurs present (Cardio) RHYTHM: regular rhythm HEART SOUNDS: S1 normal heart sound present and S2 normal heart sound present GI: COMMON NORMALS: Normal to inspection, nondistended, normoactive bowel sounds present, Soft to palpation and non-tender PALPATION: Yes Soft to palpation Extremity: COMMON NORMALS: no joint enlargement and no pedal edema OTHER: L hip without swelling or bruising. Neuro: COMMON NORMALS: moves all extremities SENSORIUM/ORIENTATION: Yes alert Skin: COMMON NORMALS: no rashes or lesions noted GENERAL SKIN EXAM: no rashes or lesions noted Urinary Catheter Management: James: Cath Placed During This Visit: yes Urinary Catheter Date of Insertion: 03/10/23 Urinary Catheter Time of Insertion: 17:53 Data 03/12/23 02:27 03/12/23 02:27 Micro: Microbiology 03/10/23 Unknown Urine Culture - Final Urine,Clean Catch Escherichia coli A&P Assessment and plan (1) MELITA (acute kidney injury): Reviewed BUN, creatinine, noted with acute rise to 37 and 1.7 respectively. MELITA, possibly intrinsic renal with ibuprofen use at home. Not hypotensive. I do not see any obvious nephrotoxic medications. After a fall, check CK. Additionally with hematuria, on presentation, although thought to be secondary to James, will check kidney ultrasound. Reassess renal function. At risk of worsening, renal failure. Obtain urine studies. (2) Fall: History had to be obtained from family. Orthopedic note reviewed. MRI this afternoon as per orthopedics. Reviewed. No acute fractures. Fall precautions. She has had issues with her balance as per discussion with her family. Currently also with humeral fracture, left hip pain, at high risk of fall. Would benefit from rehabilitation at SNF prior to return home. Family considering options would like to seek rehabilitation at [facility], [place]. Discussed with case management. Appreciate various scans including CT head, cervical spine CT, humeral CT and x-ray appreciated. Continue splint for left humeral acute fracture. Physical therapy. (3) Frailty: Reviewed TSH, vitamin B12, folate, iron panel. Noncontributory. Follow-up thyroid function at discharge. Treat UTI. (4) Closed left humeral fracture: Continue splint. PT. OT Orthopedic surgery has been consulted from the ER. Most likely will need pain control and immobilization. Splint been applied in ER. Patient allergic to morphine. [place] 5 mg every 6 hours as needed, tramadol 50 mg every 6 hours as needed. (5) Hypertension: Pressures with some fluctuation, up to 160/71 this morning, but really last night soft 113/65. Will not titrate medications for now but continue to monitor and adjust if needed. (6) UTI (urinary tract infection): E. coli. Continue ceftriaxone. Plan Hematuria: Most likely in setting of traumatic James catheterization. Kidney ultrasound. Monitor hemoglobin daily. Full code Regular diet Famotidine for PUD prophylaxis Heparin 5000 every 12 hourly for DVT prophylaxis. Discharge plan: Arrangements for rehabilitation after discharge. Attestations Medical Necessity Statement*: Continue admission for assessment management of MELITA, treatment of UTI, arrangements for rehabilitation. and High MDM includes amount and/or complexity of data reviewed/ordered [ previous or external records, resulted lab(s)/test(s), ordered lab(s)/test(s), independent historian and other healthcare professional discussion] as documented Diagnoses MELITA (acute kidney injury) N17.9 Fall W19.XXXA Frailty R54 Closed left humeral fracture S42.302A Hypertension I10 UTI (urinary tract infection) N39.0
[2023-03-12] MEDS: cefTRIAXone 1,000 MG in sodium chloride 0.9% (plus) 50 ML 100 MG IV (15:37)
[2023-03-12 17:00] LABS: Urine Creatinine 116 mg/dL (28-217); Urine Random Sodium 25 mmol/L
[2023-03-12 17:02] LABS: Glucose Urine UA Norm (Normal); Ketones Urine 1+ (Negative); Protein Urine 3+ (Negative); Urine Appearance Cloudy (CLEAR); Urine Color Brown (Yellow); pH Urine 5 (5-7)
[2023-03-12 17:03] LABS: Add Urine Microscopic? YES; Bilirubin Urine Neg (Negative); Blood Urine 3+ (Negative); Leukocyte Esterase Urine 2+ (Negative); Nitrate Urine Negative (Negative); Urobilinogen Urine Norm (Negative)
[2023-03-12 17:08] LABS: Bacteria Urine 2+ /hpf; Mucus Urine 2+ /hpf; RBC Urine TOO NUMEROUS TO CNT /hpf (0-2); WBC Urine TOO NUMEROUS TO CNT /hpf (0-5)
[2023-03-12 17:09] LABS: Add Urine Culture? Yes; Amorphous Sediment Urine 1+ /hpf
[2023-03-12] MEDS: quetiapine XR (24HR) 50 mg Tablet PO (20:33)
[2023-03-13] VITALS (7 sets, daily range): BP systolic 124–158; BP diastolic 54–73; PULSE 67–85; RESP 16–18; TEMP 36.4–36.9; O2SAT 95–97
[2023-03-13 04:34] LABS: Basophils % 0.6 %; Eosinophils # 0.2 10^3/uL (0.0-0.8); Eosinophils % 2.2 %; Hematocrit 27.3 % (36-47); Lymphocytes # 0.8 10^3/uL (0.8-4.8); Lymphocytes % 11.5 %; Mean Corpuscular HGB Conc 31.9 g/dL (30-55); Mean Corpuscular Hemoglobin 28.3 pg (27-33); Mean Corpuscular Volume 88.9 fl (85-98); Mean Platelet Volume 8.9 fL (7.4-10.4); Monocytes # 0.4 10^3/uL (0.2-0.9); Monocytes % 6.3 %; Neutrophils # 5.49 10^3/uL (1.8-7.7); Neutrophils % 79.1 %; Nucleated Red Blood Cells % 0 %; Platelet Count 209 10^3/cmm (157-399); Red Blood Count 3.07 10^6/uL (3.85-5.65); White Blood Count 6.94 10^3/uL (3.29-11.43)
[2023-03-13 04:57] LABS: Blood Urea Nitrogen 36 mg/dL (8-23); Calcium 8.5 mg/dL (8.5-10.5); Carbon Dioxide 21 mmol/L (22-29); Chloride 101 mmol/L (98-107); Glucose 97 mg/dL (65-115); Osmolality Calculated 286 mOsm/kg (285-295); Sodium 134 mmol/L (136-145)
[2023-03-13] MEDS: duloxetine 20 mg Capsule PO (05:01)
[2023-03-13] MEDS: pantoprazole DR 40 mg Tablet PO (05:01)
--- NOTE | 2023-03-13 07:21 | P.PN_ITS ---
Subjective Subjective: Patient resting comfortably with family present. Reports left arm pain. Left Hip pain has improved. Vitals/I&O/Wt Last Vital Signs Temp 97.8 F 03/13/23 03:42 Pulse 69 03/13/23 05:38 Resp 16 03/13/23 03:42 BP 153/73 03/13/23 03:42 Pulse Ox 95 03/13/23 03:42 O2 Del Method Room Air 03/13/23 03:42 03/12/23 03/13/23 03/13/23 22:59 06:59 14:59 Intake Total 50 / 290 Output Total 600 / 600 200 / 800 Balance -550 / -310 -200 / -510 Weight last 48 hrs Weight 78 lb 5 oz Weight 80 lb 3.2 oz Weight 84 lb Weight 84 lb 6.4 oz Physical Exam Narrative: Patient is alert and orient x3 has good general appearance normal mood and affect. Tender with palpation over the left humerus region. She has a Quesada brace present unfortunately left the posterior splint on it as well. She has good sensation light touch in all digits of her left hand. She wiggles all digits she is neurovascular intact. Radial pulses are palpable she has full range of motion of the right upper extremity at the shoulder elbow and wrist. HENMT: COMMON NORMALS: normocephalic and atraumatic HEAD & SCALP: normoc ephalic and atraumatic Resp: COMMON NORMALS: normal respiratory effort Cardio: COMMON NORMALS: regular rate and regular rhythm RATE: regular rate RHYTHM: regular rhythm GI: COMMON NORMALS: Soft to palpation PALPATION: Yes Soft to palpation : COMMON NORMALS: Yes no CVA tenderness BLADDER/KIDNEY EXAM: Yes no CVA tenderness Back/Pelvis: COMMON NORMALS: no CVA tenderness Psych: COMMON NORMALS: mental status grossly normal and cooperative Urinary Catheter Management: James: Cath Placed During This Visit: yes Urinary Catheter Date of Insertion: 03/10/23 Urinary Catheter Time of Insertion: 17:53 Data 03/13/23 04:26 03/13/23 04:26 Micro: Microbiology 03/10/23 Unknown Urine Culture - Final Urine,Clean Catch Escherichia coli A&P Assessment and plan (1) Closed left humeral fracture: We will continue the Quesada brace. We will discontinue the posterior splint. Sling when she is up for comfort. Physical therapy to work with weightbearing as tolerated to her left lower extremity. Nonweightbearing to the left upper extremity. Encourage incentive spirometry for pulmonary toilet. SCDs for mechanical DVT prophylaxis. Defer to the medical team for anticoagulants. We will see her back in the office in 1 to 2 weeks for radiographs of the left humerus. Qualifiers: Encounter type: subsequent encounter Humerus Location: shaft Fracture morphology: oblique Fracture alignment: displaced Fracture healing: with routine healing Qualified Code(s): S42.332D - Displaced oblique fracture of shaft of humerus, left arm, subsequent encounter for fracture with routine healing Attestations Medical Necessity Statement*: Defer to medical team Coding Level of Care Code Acute Code for Chg Fwd Diagnoses Closed left humeral fracture S42.332D Encounter type: subsequent encounter Humerus Location: shaft Fracture morphology: oblique Fracture alignment: displaced Fracture healing: with routine healing
[2023-03-13] MEDS: amlodipine 5 mg Tablet PO (08:38)
[2023-03-13] MEDS: metoprolol tartrate 25 mg Tablet PO ×2 (08:38→20:46)
[2023-03-13] MEDS: heparin 5,000 unit/mL INJ 1 mL 5000 UNIT SUBCUT ×2 (11:08→23:10)
[2023-03-13] MEDS: TRAMadol 50 mg Tablet PO ×2 (11:15→19:40)
--- NOTE | 2023-03-13 11:37 | P.PN_ITS ---
Subjective Subjective: She has been [place], has been adjusting to with the left arm brace, could not get used to the strap across her chest. Vitals/I&O/Wt Last Vital Signs Temp 97.6 F 03/13/23 07:37 Pulse 72 03/13/23 07:37 Resp 18 03/13/23 07:37 BP 146/68 03/13/23 07:37 Pulse Ox 97 03/13/23 07:37 O2 Del Method Room Air 03/13/23 07:37 03/12/23 03/13/23 03/13/23 22:59 06:59 14:59 Intake Total 50 / 290 240 / 240 Output Total 600 / 600 200 / 800 Balance -550 / -310 -200 / -510 240 / 240 Weight last 48 hrs Weight 35.522 kg Weight 36.378 kg Weight 38.102 kg Weight 38.283 kg Physical Exam Narrative: Family at bedside. Hard of hearing. Const: COMMON NORMALS: alert GENERAL APPEARANCE: cooperative ORIENTATION/CONSCIOUSNESS: Yes awake HENMT: COMMON NORMALS: oropharynx normal Neck/C-Spine: COMMON NORMALS: no JVD Resp: COMMON NORMALS: normal respiratory effort and clear to auscultation bilaterally AUSCULTATION: clear to auscultation bilaterally Cardio: COMMON NORMALS: no JVD, regular rhythm, S1 normal heart sound present, S2 normal heart sound present and No murmurs present (Cardio) RHYTHM: regular rhythm HEART SOUNDS: S1 normal heart sound present and S2 normal heart sound present GI: COMMON NORMALS: Normal to inspection, nondistended, normoactive bowel sounds present, Soft to palpation and non-tender PALPATION: Yes Soft to palpation Extremity: COMMON NORMALS: no joint enlargement and no pedal edema OTHER: L hip without swelling or bruising. Neuro: COMMON NORMALS: moves all extremities SENSORIUM/ORIENTATION: Yes alert Skin: COMMON NORMALS: no rashes or lesions noted GENERAL SKIN EXAM: no rashes or lesions noted Urinary Catheter Management: James: Cath Placed During This Visit: yes Urinary Catheter Date of Insertion: 03/10/23 Urinary Catheter Time of Insertion: 17:53 Data 03/13/23 04:26 03/13/23 04:26 Micro: Microbiology 03/10/23 Unknown Urine Culture - Final Urine,Clean Catch Escherichia coli A&P Assessment and plan (1) MELITA (acute kidney injury): Was intermittently taking ibuprofen at home. Discussed with her and family to avoid further NSAIDs. Reviewed BUN, creatinine, UA, kidney ultrasound. No hydronephrosis noted on imaging. MELITA showing improvement, creatinine down to 1.3. Prerenal renal failure, interpretation of urine electrolytes. Has not been hypotensive. Suspect secondary to NSAIDs. Reviewed CT, noted unremarkable. Reassess renal function. At risk of worsening, renal failure. (2) Fall: Reviewed orthopedic documentation. Posterior brace removed. Continue Quesada brace sling as needed for comfort. PT, OT. Discussed with case management, pending arrangements for postdischarge rehabilitation. Fall precautions. Add acetaminophen as needed. Renew hydrocodone for pain. Noted anemia, hemoglobin down to 8.7. Follow-up CBC requested. She has had issues with her balance as per discussion with her family. Currently also with humeral fracture, left hip pain, at high risk of fall. Would benefit from rehabilitation at SNF prior to return home. Family considering options would like to seek rehabilitation at [facility]. Appreciate various scans including CT head, cervical spine CT, humeral CT and x- ray appreciated. Continue splint for left humeral acute fracture. Physical therapy. (3) Frailty: Reviewed TSH, vitamin B12, folate, iron panel. Noncontributory. Follow-up thyroid function at discharge. Treat UTI. (4) Closed left humeral fracture: Continue splint. PT. OT Orthopedic surgery has been consulted from the ER. Most likely will need pain control and immobilization. Splint been applied in ER. Patient allergic to morphine. [place] 5 mg every 6 hours as needed, tramadol 50 mg every 6 hours as needed. Qualifiers: Encounter type: subsequent encounter Fracture alignment: displaced Fracture healing: with routine healing Fracture morphology: oblique Humerus Location: shaft Qualified Code(s): S42.332D - Displaced oblique fracture of shaft of humerus, left arm, subsequent encounter for fracture with routine healing (5) Hypertension: Pressures with some fluctuation, up to 160/71 this morning, but really last night soft 113/65. Will not titrate medications for now but continue to monitor and adjust if needed. (6) UTI (urinary tract infection): E. coli. Continue ceftriaxone. Plan Hematuria: Most likely in setting of traumatic James catheterization. Kidney ultrasound. Monitor hemoglobin daily. Full code Regular diet Famotidine for PUD prophylaxis Heparin 5000 every 12 hourly for DVT prophylaxis. Discharge plan: Arrangements for rehabilitation after discharge. Attestations Medical Necessity Statement*: Continue admission for assessment management of MELITA, treatment of UTI, arrangements for rehabilitation. and High MDM includes amount and/or complexity of data reviewed/ordered [ resulted lab(s)/test(s), ordered lab(s)/test(s), independent test interpretation and other healthcare professional discussion] as documented Diagnoses MELITA (acute kidney injury) N17.9 Fall W19.XXXA Frailty R54 Closed left humeral fracture S42.332D Encounter type: subsequent encounter Fracture alignment: displaced Fracture healing: with routine healing Fracture morphology: oblique Humerus Location: shaft Hypertension I10 UTI (urinary tract infection) N39.0
[2023-03-13] MEDS: cefTRIAXone 1,000 MG in sodium chloride 0.9% (plus) 50 ML 100 MG IV (14:26)
[2023-03-13] MEDS: quetiapine XR (24HR) 50 mg Tablet PO (20:46)
[2023-03-13] MEDS: HYDROcodone-acetaminophen 5-325 mg Tablet 1 TAB PO (23:39)
[2023-03-14 00:16] VITALS: BP 160/70; PULSE 72; RESP 16; TEMP 36.4; O2SAT 94
[2023-03-14 04:26] VITALS: BP 113/63; PULSE 71; RESP 16; TEMP 36.4; O2SAT 95
[2023-03-14 05:08] LABS: Basophils % 0.6 %; Eosinophils # 0.5 10^3/uL (0.0-0.8); Eosinophils % 7.7 %; Hematocrit 27.2 % (36-47); Lymphocytes % 16.6 %; Mean Corpuscular HGB Conc 31.3 g/dL (30-55); Mean Corpuscular Hemoglobin 28.3 pg (27-33); Mean Corpuscular Volume 90.7 fl (85-98); Mean Platelet Volume 9.4 fL (7.4-10.4); Monocytes # 0.5 10^3/uL (0.2-0.9); Monocytes % 7.2 %; Neutrophils # 4.19 10^3/uL (1.8-7.7); Neutrophils % 67.6 %; Nucleated Red Blood Cells % 0 %; Platelet Count 228 10^3/cmm (157-399); White Blood Count 6.21 10^3/uL (3.29-11.43)
[2023-03-14 05:31] LABS: Blood Urea Nitrogen 36 mg/dL (8-23); Calcium 8.5 mg/dL (8.5-10.5); Carbon Dioxide 23 mmol/L (22-29); Chloride 102 mmol/L (98-107); Glucose 95 mg/dL (65-115); Osmolality Calculated 290 mOsm/kg (285-295); Sodium 136 mmol/L (136-145)
[2023-03-14 05:51] VITALS: PULSE 65
[2023-03-14] MEDS: pantoprazole DR 40 mg Tablet PO (06:02)
[2023-03-14] MEDS: duloxetine 20 mg Capsule PO (06:02)
[2023-03-14 08:00] VITALS: BP 110/72; PULSE 78; RESP 18; TEMP 36.6; O2SAT 95
[2023-03-14] MEDS: amlodipine 5 mg Tablet PO (09:14)
[2023-03-14] MEDS: metoprolol tartrate 25 mg Tablet PO (09:14)
[2023-03-14] MEDS: heparin 5,000 unit/mL INJ 1 mL 5000 UNIT SUBCUT (11:10)
--- NOTE | 2023-03-14 11:28 | PM.DCS ---
Discharge Providers Date of Admission: 03/10/23 21:03 Date of Discharge: March 14, 2023 Attending Provider at Admission: Miguel Casper MD Attending Provider at Discharge: Red Bolden Primary Care Provider: Jamie Baumann MD Diagnoses at Discharge Discharge Diagnosis (1) MELITA (acute kidney injury): Status: Acute (2) Fall: Status: Acute (3) Frailty: Status: Acute (4) Closed left humeral fracture: Status: Acute Qualifiers: Encounter type: subsequent encounter Fracture alignment: displaced Fracture healing: with routine healing Fracture morphology: oblique Humerus Location: shaft Qualified Code(s): S42.332D - Displaced oblique fracture of shaft of humerus, left arm, subsequent encounter for fracture with routine healing (5) Hypertension: Status: Acute (6) UTI (urinary tract infection): Status: Acute Reason for Visit Reason for Visit: LEFT SHOULDER/RIBS PAIN S/P FALL Hospital Course Hospital Course Pleasant 87-year-old lady, wheelchair-bound, living at home with her 90-year-old and son, somewhat hard of hearing, also speaks Sen[place]alese, with history of hypertension, other medical problems came into the hospital after a fall with resultant pain in her left arm and neck. C-spine CT without acute abnormality. Head CT without acute abnormality. Left shoulder x-ray showed displaced obliquely oriented fracture proximal humeral shaft. Confirmed on humerus x-ray. Rib x-ray with incidentally seen stable 2 cm pulmonary nodule right midlung zone likely benign. No displaced rib fractures. She was seen by orthopedics. Humerus CT with acute humeral shaft fracture. She had a left arm splint placed. Hip x-rays unremarkable on the right, on the left questionable fracture left superior and inferior pubic rami. MRI showed no acute left hip fracture unremarkable right hip, no visualized pubic rami fractures although some images are limited. On orthopedic reassessment posterior splint was discontinued. She is to continue Quesaad brace. Sling when she is up for comfort. Continue PT. Follow-up in office in 1-2 weeks for radiographs of the left humerus. Noted to have anemia, hemoglobin down to 8.5, please follow-up CBC in 3 days. During hospitalization she was also found to have been treated for urinary tract infection, receiving ceftriaxone, eventually culture growing E. coli resistant to ampicillin, intermediate sensitivity to Unasyn. She will complete a course with cefdinir. Hypertension poorly controlled presented her blood pressure 226/138, optimized during hospitalization started on amlodipine, metoprolol. Continue to optimize blood pressure control. During hospitalization also MELITA, at home was taking ibuprofen, NSAIDs discontinued, renal function appears to be improving. No hydronephrosis on kidney ultrasound. Increased echogenicity compatible with medical renal disease. Noted some hematuria secondary to James insertion. Please follow-up, reassess to confirm resolution of MELITA. Avoid NSAIDs. Physical Exam Narrative: Family at bedside. Hard of hearing. Const: COMMON NORMALS: alert GENERAL APPEARANCE: cooperative ORIENTATION/CONSCIOUSNESS: Yes awake OTHER: She has been finally catching up on some sleep. Resting, wakes up to voice, answers appropriately. HENMT: COMMON NORMALS: oropharynx normal Neck/C-Spine: COMMON NORMALS: no JVD Resp: COMMON NORMALS: normal respiratory effort and clear to auscultation bilaterally AUSCULTATION: clear to auscultation bilaterally Cardio: COMMON NORMALS: no JVD, regular rhythm, S1 normal heart sound present, S2 normal heart sound present and No murmurs present (Cardio) RHYTHM: regular rhythm HEART SOUNDS: S1 normal heart sound present and S2 normal heart sound present GI: COMMON NORMALS: Normal to inspection, nondistended, normoactive bowel sounds present, Soft to palpation and non-tender PALPATION: Yes Soft to palpation Extremity: COMMON NORMALS: no joint enlargement and no pedal edema OTHER: L hip without swelling or bruising. Neuro: COMMON NORMALS: moves all extremities SENSORIUM/ORIENTATION: Yes alert Skin: COMMON NORMALS: no rashes or lesions noted GENERAL SKIN EXAM: no rashes or lesions noted Urinary Catheter Management: James: Cath Placed During This Visit: yes Urinary Catheter Date of Insertion: 03/10/23 Urinary Catheter Time of Insertion: 17:53 Discharge Data Studies Completed and Pending Completed Studies During Hospitalization Category Date Time Status CT cervical spin wo con* [id number] Stat Cat Scan 03/10/23 17:[address] head wo con* [id number] Stat Cat Scan 03/10/23 17:[address] humerus LT wo con* [id number] Stat Cat Scan 03/10/23 21:00 Completed XR hip LT 1V wo/w pel [id number] Routine Exams 03/11/23 07:52 Completed XR hip RT 1V wo/w pel [id number] Routine Exams 03/10/23 23:49 [place] [id number] Stat Exams 03/10/23 17:58 Completed XR ribs LT mn 3V w CXR1V 48427 Stat Exams 03/10/23 17:17 Completed XR shoulder LT min 2V* [id number] Stat Exams 03/10/23 17:06 Completed MR hip LT wo con* [id number] Routine MRI 03/12/23 07:00 Completed US renal BI* [id number] Routine Ultrasound 03/12/23 08:53 Completed Pending at discharge Category Date Time Status Basic Metabolic Panel AM LABS Lab 03/15/23 04:00 Ordered Complete Blood Count w/Auto AM LABS Lab 03/15/23 04:00 Ordered SARS Covid-2 Antigen Stat Lab 03/14/23 11:10 Received Radiology Impressions Cervical Spine CT 03/10/23 17:06 IMPRESSION: No acute bony abnormalities. Head CT 03/10/23 17:06 IMPRESSION: No acute intracranial abnormalities. Shoulder X-Ray 03/10/23 17:06 IMPRESSION: Acute, displaced obliquely oriented fracture proximal humeral shaft. Ribs X-Ray 03/10/23 17:17 IMPRESSION: 1. Acute displaced fracture left humeral shaft. 2. No displaced left rib fractures detected. 3. Stable 2 cm pulmonary nodule right mid lung zone likely benign. Humerus X-Ray 03/10/23 17:58 IMPRESSION: Acute displaced fracture proximal shaft left humerus. Humerus CT 03/10/23 21:00 IMPRESSION: Acute humeral shaft fracture, as above. Hip X-Ray 03/11/23 07:52 IMPRESSION: Questionable fractures of the left superior and inferior pubic rami. Recommend CT pelvis to further assess. Laboratory Results WBC 6.21 10^3/uL (3.29-11.43) 03/14/23 04:42 RBC 3.00 10^6/uL (3.85-5.65) L 03/14/23 04:42 Hgb 8.50 g/dL (11.27-16.99) L 03/14/23 04:42 Hct 27.2 % (36-47) L 03/14/23 04:42 MCV 90.7 fl (85-98) 03/14/23 04:42 MCH 28.3 pg (27-33) 03/14/23 04:42 MCHC 31.3 g/dL (30-55) 03/14/23 04:42 RDW 15.0 % (12.1-15.1) 03/14/23 04:42 Plt Count 228 10^3/cmm (157-399) 03/14/23 04:42 MPV 9.4 fL (7.4-10.4) 03/14/23 04:42 Neut % (Auto) 67.6 % 03/14/23 04:42 Lymph % (Auto) 16.6 % 03/14/23 04:42 [place] % (Auto) 7.2 % 03/14/23 04:42 Eos % (Auto) 7.7 % 03/14/23 04:42 Baso % (Auto) 0.6 % 03/14/23 04:42 Neut # (Auto) 4.19 10^3/uL (1.8-7.7) 03/14/23 04:42 Lymph # (Auto) 1.0 10^3/uL (0.8-4.8) 03/14/23 04:42 [place] # (Auto) 0.5 10^3/uL (0.2-0.9) 03/14/23 04:42 Eos # (Auto) 0.5 10^3/uL (0.0-0.8) 03/14/23 04:42 Baso # (Auto) 0.0 10^3/uL (0.0-0.1) 03/14/23 04:42 Nucleated RBC % (auto) 0 % 03/14/23 04:42 Nucleated RBCs # 0.0 /100WBC 03/14/23 04:42 Sodium 136 mmol/L (136-145) 03/14/23 04:42 Potassium 4.0 mmol/L (3.5-5.1) 03/14/23 04:42 Chloride 102 mmol/L (98-107) 03/14/23 04:42 Carbon Dioxide 23 mmol/L (22-29) 03/14/23 04:42 Anion Gap 15.0 (5-19) 03/14/23 04:42 BUN 36 mg/dL (8-23) H 03/14/23 04:42 Creatinine 1.1 mg/dL (0.5-0.9) H 03/14/23 04:42 GFR Calculation Not Reportable 03/14/23 04:42 Glucose 95 mg/dL (65-115) 03/14/23 04:42 Estimat Average Glucose 94 03/11/23 02:26 Hemoglobin A1c 4.9 % (4.0-6.0) 03/11/23 02:26 Calculated Osmolality 290 mOsm/kg (285-295) 03/14/23 04:42 Calcium 8.5 mg/dL (8.5-10.5) 03/14/23 04:42 Phosphorus 3.4 mg/dL (2.5-4.5) 03/11/23 02:26 Magnesium 2.1 mg/dL (1.7-2.3) 03/11/23 02:26 Iron 73 ug/dL (37-145) 03/10/23 17:11 TIBC 234 mcg/dl 03/10/23 17:11 % Saturation 31.1 % (20-50) 03/10/23 17:11 Unsat Iron Binding 161 ug/dL (112-347) 03/10/23 17:11 Total Bilirubin 0.3 mg/dL (0.15-1.2) 03/12/23 02:27 AST 18 U/L (0-32) 03/12/23 02:27 ALT < 5 U/L (0-33) 03/12/23 02:27 Alkaline Phosphatase 95 U/L (35-105) 03/12/23 02:27 Creatine Kinase 122 U/L (26-192) 03/12/23 02:27 Total Protein 6.5 g/dL (6.6-8.7) L 03/12/23 02:27 Albumin 3.5 g/dL (3.5-5.2) 03/12/23 02:27 Globulin 3.0 g/dL (1.3-4.6) 03/12/23 02:27 Triglycerides 71 mg/dL (0-150) 03/11/23 02:26 Cholesterol 176 mg/dL (0-200) 03/11/23 02:26 LDL Cholesterol, Calc 101 mg/dL (50-129) 03/11/23 02:26 HDL Cholesterol 61 mg/dL (60-100) 03/11/23 02:26 LDL/HDL Ratio 1.66 RATIO (0.00-3.22) 03/11/23 02:26 Cholesterol/HDL Ratio 2.89 mg/dL (0.0-4.40) 03/11/23 02:26 Vitamin B12 437 pg/mL (232-1245) 03/10/23 17:11 Folate 19.1 ng/mL (4.8-37.3) 03/11/23 02:26 TSH 6.52 uIU/mL (0.27-4.20) H 03/10/23 17:11 Free T4 1.09 ng/dL (0.82-1.77) 03/11/23 00:00 Free T3 1.9 PG/ML (2.0-4.4) L 03/11/23 00:00 Urine Color Brown (Yellow) A 03/12/23 16:15 Urine Appearance Cloudy (CLEAR) A 03/12/23 16:15 Urine pH 5 (5-7) 03/12/23 16:15 Ur Specific [place] 1.020 (1.005-1.030) 03/12/23 16:15 Urine Protein 3+ (Negative) H 03/12/23 16:15 Urine Glucose (UA) Norm (Normal) 03/12/23 16:15 Urine Ketones 1+ (Negative) H 03/12/23 16:15 Urine Blood 3+ (Negative) H 03/12/23 16:15 Urine Nitrate Negative (Negative) 03/12/23 16:15 Urine Bilirubin Neg (Negative) 03/12/23 16:15 Prot Sulfosalicylic Acd Positive (Negative) 03/10/23 17:45 Urine Urobilinogen Norm mg/dL (Negative) 03/12/23 16:15 Ur Leukocyte Esterase 2+ (Negative) H 03/12/23 16:15 Urine RBC Too numerous to cnt /hpf (0-2) H 03/12/23 16:15 Urine WBC Too numerous to cnt /hpf (0-5) H 03/12/23 16:15 Ur Squamous Epith Cells 5-10 /hpf (0-5) H 03/12/23 16:15 Amorphous Sediment 1+ /hpf 03/12/23 16:15 Urine Bacteria 2+ /hpf (NONE) H 03/12/23 16:15 Urine Mucus 2+ /hpf 03/12/23 16:15 Ur Random Sodium 25 mmol/L 03/12/23 16:15 Urine Creatinine 116 mg/dL (28-217) 03/12/23 16:15 Vitals Last Vital Signs Temp 98 F 03/14/23 08:00 Pulse 78 03/14/23 08:00 Resp 18 03/14/23 08:00 BP 110/72 03/14/23 08:00 Pulse Ox 95 03/14/23 08:00 O2 Del Method Room Air 03/14/23 03:25 Discharge Plan Discharge Patient Disposition: Xfer SNF Condition: Stable Prescriptions: New hydrocodone-acetaminophen 5-325 mg Tablet 1 tab PO Q8H PRN (Reason: Moderate To Severe Pain) Qty: 5 0RF magnesium hydroxide [Milk of Magnesia] 400 mg/5 mL Suspension 30 ml PO DAILY PRN (Reason: Constipation (see protocol)) Qty: 355 0RF amlodipine 5 mg Tablet 5 mg PO DAILY Qty: 90 0RF acetaminophen 325 mg Tablet 650 mg PO Q6H PRN (Reason: Mild Pain) Qty: 90 0RF cefdinir 300 mg capsule 300 mg PO BID 4 Days Qty: 8 0RF bisacodyl 5 mg Tablet,Delayed Release (Dr/Ec) 10 mg PO DAILY PRN (Reason: Constipation (see protocol)) Qty: 30 0RF lactulose 20 gram/30 mL Solution 10 g PO DAILY PRN (Reason: Constipation (see protocol)) Qty: 1200 0RF metoprolol tartrate 25 mg Tablet 25 mg PO BID@0900,2100 Qty: 180 0RF Continued diphenhydramine HCl [Benadryl] 25 mg capsule 25 mg PO BID PRN (Reason: Itching) Stool Softener 100 mg Capsule 100 mg PO DAILY PRN (Reason: Constipation) duloxetine 20 mg capsule,delayed release(DR/EC) 20 mg PO QAM quetiapine 50 mg tablet extended release 24 hr 50 mg PO QPM Discontinued ibuprofen 200 mg Tablet 200 mg PO Q6H PRN (Reason: Pain) Discharge Orders: Discharge Order (Routine); Ordered 03/14/23 Ordered By: Red Bolden Referrals: SNF, PCP [Other] - 4-7 days Juan Francisco Strong DO [Physician] - 1 week (1-2 weeks) Jamie Baumann MD [Primary Care Provider] - None (After SNF) Discharge Diet: Advance as tolerated and Cardiac Discharge Activity: As per PT/OT instructions Patient Instructions: Arm Fracture in Adults (GEN), Acute Kidney Injury (GEN), Urinary Tract Infection in Women (GEN), Chronic Hypertension (GEN), Proximal Humerus Fracture (GEN), Urinary Tract Infection in Older Adults (GEN), Opioid Safety Activity Restrictions/Additional Instructions: Complete antibiotic course for UTI. Repeat chemistry in 3 days to confirm resolution of MELITA. Avoid any NSAIDs. Follow-up CBC in 3 days for anemia. Maintain fall precautions. Continue to optimize control of hypertension. You are being discharged from the hospital today during which time you have been under the care of Dr Strong. You had a left humeral shaft fracture. You were treated for this injury with Quesada brace and sling. You may resume you normal diet (including any special diets as directed by your primary doctor) as well as your home medications. You should follow up with you primary doctor if you have any questions regarding medication you took prior to your stay in the hospital. You may take your pain medication as prescribed. After the first few days, take your pain medication as needed. Do not drive or drink alcohol while taking your pain medication. Your injury may increase your risk of developing a blood clot,or DVT, in your arm or leg. This could potentially dislodge and travel to your lungs and become a life threatening condition called apulmonary embolus,or PE. You have been prescribed [] to be taken to prevent this. Frequent movement of the [] will also help prevent this from occurring. If you develop any new or worsening cough, chestpain, bloody sputum or shortness of breath, call 911 or go to the EmergencyRoom. Always keep your surgical incision/dressing clean and dry. If you experience increasing pain at your incision site, redness, swelling, increasing discharge, foul odors, or fevers (greater than 100.4), night sweats or chills you should call the office at the above number. If you feel this is an emergency you should be evaluated in the Emergency Department of a nearby hospital. Orthopedic Patient Instructions Summary: Weight Bearing: Nonweightbearing left upper extremity Activity: No use of left arm. Diet: Regular. Splint Care: Keep splint clean and dry. Cover with a plastic bag for bathing. Wound Care: Keep dressing clean and dry. Anticoagulation: Per hospitalist team Pain Medication: Take only as needed. Ice, rest and elevation will be of great benefit. Please plan to follow-up wlth Dr Strong in 1-2 weeks. You will need to call the clinic [phone] to schedule this visit. Thank you far allowing me to participate in your care. Do not hesitate to call the office with any questions or concerns. Discharge Attestations Time Spent in Discharge Care*: greater than 30 min Quality Metrics Clinical Quality Measures [ No reported AMI, CVA or VTE this stay] Coding Level of Care Code 83892 Total time (in minutes) for Discharge: 40 Diagnoses MELITA (acute kidney injury) N17.9 Fall W19.XXXA Frailty R54 Closed left humeral fracture S42.332D Encounter type: subsequent encounter Fracture alignment: displaced Fracture healing: with routine healing Fracture morphology: oblique Humerus Location: shaft Hypertension I10 UTI (urinary tract infection) N39.0
[2023-03-14 11:34] LABS: SARS Covid-2 Antigen negative (Negative)
[2023-03-14 12:00] VITALS: BP 120/74; PULSE 82; RESP 17; TEMP 36.3; O2SAT 95
--- NOTE | 2023-03-14 12:32 | PC.NURSE ---
This nurse called and gave report to nurse Paulino at [facility]. All questions addressed and answered. Updated on patients history and current status.
[2023-03-14 13:31] VITALS: BP 120/74; PULSE 82; RESP 17; TEMP 36.3; O2SAT 95
== END 2023-03-14 13:32 | disposition skilled nursing facility (03) ==
LOC: ER 21:01 → MEDSURG 21:34
PROVIDERS: Student in an Organized Health Care Education/Training Program; Admitting Provider Student in an Organized Health Care Education/Training Program; Emergency Provider Physician Assistant; PCP Internal Medicine; Visit Provider Internal Medicine
DX: N17.9 Acute kidney failure, unspecified (principal); N39.0 Urinary tract infection, site not specified; R54 Age-related physical debility; S42.332D Displaced oblique fracture of shaft of humerus, left arm, subsequent encounter for fracture with routine healing; X58.XXXD Exposure to other specified factors, subsequent encounter; I10 Essential (primary) hypertension; Z99.3 Dependence on wheelchair; D64.9 Anemia, unspecified; Z91.81 History of falling; Z79.82 Long term (current) use of aspirin
CPT/HCPCS: 36415; 51702; 70450; 71101; 72125; 73030; 73060; 73200; 73501; 73721; 76770; 80048; 80053; 80061; 81001; 82550; 82570; 82607; 82746; 83036; 83540; 83550; 83735; 84100; 84300; 84439; 84443; 84481; 85025; 87077; 87086; 87186; 87426; 93005; 94664; 96365; 96372; 96375; 97161; 97167; 97530; 99285; A4565; G0378; J0696; J1170; J1644

== ENCOUNTER → 2023-03-29 14:11 | Outpatient (BNVA) | payer MEDICARE, SELFPAY | PROVIDERS: PCP Internal Medicine; Visit Provider Orthopaedic Surgery | DX: S42.342D Displaced spiral fracture of shaft of humerus, left arm, subsequent encounter for fracture with routine healing; W19.XXXA Unspecified fall, initial encounter | CPT/HCPCS: 73060; 99213 ==

== ENCOUNTER → 2023-04-26 10:41 | Outpatient (BNVA) | payer MEDICARE, SELFPAY | PROVIDERS: PCP Internal Medicine; Visit Provider Physician Assistant | DX: S42.332D Displaced oblique fracture of shaft of humerus, left arm, subsequent encounter for fracture with routine healing; X58.XXXD Exposure to other specified factors, subsequent encounter | CPT/HCPCS: 73060; 99213 ==

== ENCOUNTER → 2023-05-24 10:20 | Outpatient (BNVA) | payer MEDICARE, SELFPAY | PROVIDERS: PCP Internal Medicine; Visit Provider Orthopaedic Surgery | DX: S42.332D Displaced oblique fracture of shaft of humerus, left arm, subsequent encounter for fracture with routine healing; X58.XXXD Exposure to other specified factors, subsequent encounter | CPT/HCPCS: 73060; 99213 ==

== ENCOUNTER 2023-07-05 12:55 | Inpatient (IN) | payer MEDICARE, SELFPAY ==
[2023-07-05] VITALS (17 sets, daily range): BP systolic 124–172; BP diastolic 57–97; PULSE 72–100; RESP 11–21; TEMP 36.2–36.5; O2SAT 90–96; BMI 17.6
--- NOTE | 2023-07-05 12:46 | ECG_ITS ---
[facility] Test Date: 2023-07-05 Pat Name: Yesica Palencia Department: Room: Gender: Female Process Control Specialist: : [id number] Requested By: Jonathan Palafox Order Number: [id number] Buffy MD: Watson Altamirano M.D. Measurements Intervals [place] Rate: 71 P: 88 SC: 172 QRS: 61 QRSD: 85 T: 78 QT: 389 QTc: 425 Interpretive Statements SINUS RHYTHM MODERATE VOLTAGE CRITERIA FOR LVH, CONSIDER NORMAL VARIANT [MEETS CRITERIA IN ONE OF: R(aVL), S(V1), R(V5), R(V5/V6)+S(V1)] MODERATE ST DEPRESSION [0.05+ mV ST DEPRESSION] Compared to ECG 03/10/2023 17:05:03 Sinus tachycardia no longer present ST (T wave) deviation still present Electronically Signed On 07-05-2023 15:20:33 CDT by Watson Altamirano M.D. [id number]
--- NOTE | 2023-07-05 12:59 | XRR_ITS ---
PROCEDURE INFORMATION: Exam: XR Right Knee Exam date and time: 07/05/2023 1:14 PM Age: 88 years old Clinical indication: Injury or trauma; Fall; Blunt trauma; Knee; Right; Additional info: Fall, ordered 3 view, only 2 submitt TECHNIQUE: Imaging protocol: Radiologic exam of the right knee. Views: 1 or 2 views. COMPARISON: CR XR knee RT 1-2V [id number] 03/01/2021 10:38 AM FINDINGS: Bones/joints: Normal. Soft tissues: Otherwise, unremarkable soft tissues Vasculature: Arterial calcification. XR/XR knee RT 1-2V [id number] IMPRESSION: No acute findings.
--- NOTE | 2023-07-05 12:59 | XRR_ITS ---
PROCEDURE INFORMATION: Exam: XR Right Hip Exam date and time: 07/05/2023 1:14 PM Age: 88 years old Clinical indication: Injury or trauma; Fall; Blunt trauma (contusions or hematomas); Right; Hip TECHNIQUE: Imaging protocol: Radiologic exam of the right hip. Views: 1 view hip with pelvis when performed. COMPARISON: CR XR hip RT 1V wo/w pel [id number] 03/11/2023 12:59 AM FINDINGS: Bones/joints: Comminuted fracture of the intertrochanteric proximal right femur with impaction and severe varus deformity. Some fracture fragments are somewhat displaced. Mild bilateral hip arthritis. Moderate lumbar scoliosis with moderate and severe spondylosis. Otherwise, unremarkable. Soft tissues: Otherwise, unremarkable soft tissues. Gastrointestinal tract: Fecal impaction is suspected. Vasculature: Large amount of arterial calcification. XR/XR hip RT 2-3V wo/w pel* [id number] IMPRESSION: 1. Right femoral intertrochanteric fracture. 2. Fecal impaction is suspected.
--- NOTE | 2023-07-05 13:09 | W.ED.FALL ---
HPI - Fall General: Chief Complaint: Extremity Injury, Lower Stated Complaint: possible hip fracture Time Seen by Provider: 07/05/23 12:56 Source: patient and EMS Mode of arrival: EMS Limitations: no limitations History of Present Illness: 88-year-old female states that she rolled out of bed a week ago and injured her right hip. She has had right hip pain since then has not been able to bear any weight family's been trying to get her to go to the ER and was able to convince her today. She does have shortening rotation of the right leg no known other injuries when she fell denies any head injury. Associated symptoms-after fall: Denies abdominal pain, chest pain, headache(s) or neck pain Review of Systems Const: Denies: fever(s), chills, body aches or change in appetite ENMT: Denies: throat pain or dental pain Card: Denies: chest pain Resp: Denies: dyspnea GI: Denies: abdominal pain, nausea, vomiting or diarrhea Musc: Reports: extremity pain; Denies: neck pain or back pain Skin/Breast: Denies: rash Neuro: Denies: headache(s) PFSH ED PFSH: Medical History Hypertension Cystocele with prolapse Urge incontinence of urine Surgical History Hx of breast biopsy Hx of hernia repair History of appendectomy Hx of hysterectomy Family History Mother Diabetes Social History Smoking and tobacco/nicotine status: former use of tobacco/nicotine Quit status (tobacco/nicotine): has quit using Year quit tobacco: 2011 Second hand smoke exposure: No Alcohol intake: current Alcohol intake frequency: few times a week Alcohol type: wine Substance/Drug Use: never Physical Exam Const: COMMON NORMALS: patient oriented x3 HENMT: COMMON NORMALS: normocephalic and atraumatic HEAD & SCALP: normocephalic and atraumatic Neck/C-Spine: COMMON NORMALS: full ROM and supple Chest: COMMONS NORMALS: normal inspection of the chest and normal palpation of entire chest wall Resp: COMMON NORMALS: normal respiratory effort, No retractions, No use of accessory muscles and clear to auscultation bilaterally AUSCULTATION: clear to auscultation bilaterally Cardio: COMMON NORMALS: regular rate, regular rhythm and No murmurs present (Cardio) RATE: regular rate RHYTHM: regular rhythm GI: COMMON NORMALS: Normal to inspection, nondistended, normoactive bowel sounds present, Soft to palpation, non-tender and no masses PALPATION: Yes Soft to palpation Extremity: NARRATIVE EXTREMITY EXAM: Tenderness noted to right hip and knee distal pulses sensation intact. Neuro: COMMON NORMALS: patient oriented x3, moves all extremities and no focal motor deficits Psych: COMMON NORMALS: mental status grossly normal, Normal thought process present and cooperative THOUGHT PROCESS: Normal thought process present Skin: COMMON NORMALS: no rashes or lesions noted and no wounds GENERAL SKIN EXAM: no rashes or lesions noted Course Vital Signs: Vital signs: Vital Signs Temperature 97.7 F 07/05/23 12:56 Pulse Rate 75 07/05/23 13:14 Respiratory Rate 21 H 07/05/23 13:14 Blood Pressure 172/76 07/05/23 12:56 Pulse Oximetry 94 07/05/23 13:14 MDM - Fall Medical Decision Making Patient presents here with a right hip fracture from a fall no other injuries noted I spoke to hospitalist and orthopedics will admit at this time. Medical Records I reviewed the patient's medical records. Lab Data I reviewed the patient's lab results. 07/05/23 13:37 07/05/23 13:37 Laboratory Results WBC 6.18 10^3/uL (3.29-11.43) 07/05/23 13:37 RBC 2.76 10^6/uL (3.85-5.65) L 07/05/23 13:37 Hgb 7.90 g/dL (11.27-16.99) L 07/05/23 13:37 Hct 25.0 % (36-47) L 07/05/23 13:37 MCV 90.6 fl (85-98) 07/05/23 13:37 MCH 28.6 pg (27-33) 07/05/23 13:37 MCHC 31.6 g/dL (30-55) 07/05/23 13:37 RDW 15.0 % (12.1-15.1) 07/05/23 13:37 Plt Count 410 10^3/cmm (157-399) H 07/05/23 13:37 MPV 8.4 fL (7.4-10.4) 07/05/23 13:37 Neut % (Auto) 66.9 % 07/05/23 13:37 Lymph % (Auto) 18.9 % 07/05/23 13:37 [place] % (Auto) 7.0 % 07/05/23 13:37 Eos % (Auto) 6.3 % 07/05/23 13:37 Baso % (Auto) 0.6 % 07/05/23 13:37 Neut # (Auto) 4.13 10^3/uL (1.8-7.7) 07/05/23 13:37 Lymph # (Auto) 1.2 10^3/uL (0.8-4.8) 07/05/23 13:37 [place] # (Auto) 0.4 10^3/uL (0.2-0.9) 07/05/23 13:37 Eos # (Auto) 0.4 10^3/uL (0.0-0.8) 07/05/23 13:37 Baso # (Auto) 0.0 10^3/uL (0.0-0.1) 07/05/23 13:37 Nucleated RBC % (auto) 0 % 07/05/23 13:37 Nucleated RBCs # 0.0 /100WBC 07/05/23 13:37 All radiology interpretation(s) finalized by discharge Discharge Plan Discharge Patient Disposition: Admitted As Inpatient Clinical Impression: Fracture of hip Condition: Stable Prescriptions: No Action Tylenol Ex Str Rapid Release 500 mg Tablet 500 mg PO Q6H PRN (Reason: Pain) trazodone 100 mg tablet 100 mg PO BEDTIME Advil 200 mg Tablet 200 mg PO Q6H PRN (Reason: Pain) duloxetine 30 mg capsule,delayed release(DR/EC) 30 mg PO QAM Referrals: Jamie Baumann MD [Primary Care Provider] - Coding Level of Care Code ED Latex Thread Machine Operator for Luigi Ramirez
--- NOTE | 2023-07-05 13:18 | XRR_ITS ---
PROCEDURE INFORMATION: Exam: XR Chest Exam date and time: 07/05/2023 1:28 PM Age: 88 years old Clinical indication: Injury or trauma; Fall; Blunt trauma (contusions or hematomas) TECHNIQUE: Imaging protocol: Radiologic exam of the chest. Views: 1 view. COMPARISON: CR (CHEST, ) 03/10/2023 6:03 PM FINDINGS: Lungs: 2 cm nodule in the right mid lung remains unchanged since 2018, so is considered benign. Otherwise, unremarkable. Pleural spaces: Unremarkable. No pleural effusion. No pneumothorax. Heart/Mediastinum: Normal heart size. Otherwise, unremarkable. Vasculature: Unchanged aortic calcification. Bones/joints: Superior subluxation of both humeral heads is chronic. Screw projecting over the proximal right humerus. Mild scoliosis. Minimal spondylosis. Otherwise, unremarkable. XR/XR chest 1V portable [id number] IMPRESSION: No acute disease.
--- NOTE | 2023-07-05 13:27 | PC.PHAR ---
pts verified pts medications-pts states the pt only takes the medications entered-ext shows zyprexa 2.5mg hs filled 06/06/23 pts states the pt cant take zyprexa
[2023-07-05 13:47] LABS: Basophils % 0.6 %; Eosinophils # 0.4 10^3/uL (0.0-0.8); Eosinophils % 6.3 %; Lymphocytes # 1.2 10^3/uL (0.8-4.8); Lymphocytes % 18.9 %; Mean Corpuscular HGB Conc 31.6 g/dL (30-55); Mean Corpuscular Hemoglobin 28.6 pg (27-33); Mean Corpuscular Volume 90.6 fl (85-98); Mean Platelet Volume 8.4 fL (7.4-10.4); Monocytes # 0.4 10^3/uL (0.2-0.9); Neutrophils # 4.13 10^3/uL (1.8-7.7); Neutrophils % 66.9 %; Nucleated Red Blood Cells % 0 %; Platelet Count 410 10^3/cmm (157-399); Red Blood Count 2.76 10^6/uL (3.85-5.65); White Blood Count 6.18 10^3/uL (3.29-11.43)
[2023-07-05 14:02] LABS: INR 1.03 (0.8-1.2)
[2023-07-05 14:10] LABS: Alanine Aminotransferase 6 U/L (0-33); Albumin Level 3.3 g/dL (3.5-5.2); Alkaline Phosphatase 119 U/L (35-105); Anion Gap 12.5 (5-19); Aspartate Amino Transferase 11 U/L (0-32); Blood Urea Nitrogen 20 mg/dL (8-23); Calcium 8.6 mg/dL (8.5-10.5); Carbon Dioxide 26 mmol/L (22-29); Chloride 102 mmol/L (98-107); Creatinine Clr Calc Pharmacy 34.1232; Globulin 2.6 g/dL (1.3-4.6); Glucose 88 mg/dL (65-115); Osmolality Calculated 286 mOsm/kg (285-295); Potassium 3.5 mmol/L (3.5-5.1); Sodium 137 mmol/L (136-145); Total Bilirubin 0.6 mg/dL (0.15-1.2); Total Protein 5.9 g/dL (6.6-8.7)
[2023-07-05 14:20] LABS: Erythrocyte Sedimentation Rate 11 mm/hr (0-15)
[2023-07-05 14:31] LABS: Troponin(5th) Baseline 94 ng/L (0-10)
[2023-07-05 14:37] LABS: Lactic Sepsis W/Reflex 0.7 mmol/L (0.5-2.2)
[2023-07-05 14:47] LABS: NT Pro B Type Natriuretic Pept 1290 pg/mL (0-450); Procalcitonin 0.06 ng/mL (0-0.5)
--- NOTE | 2023-07-05 14:50 | P.HP_ITS ---
Providers/Chief Complaint 2 Primary Care Provider: Jamie Baumann MD Chief Complaint: possible hip fracture History of Present Illness Yesica Palencia is a 88 year old female with a past medical history of anemia, hypertension, who presents to [facility] for a fall last week on Sunday, patient is currently alert to person, to place, not to time she can follow commands but does have episodes of confusion, at bedside helps with the history taking, he tells me that last Sunday she fell, and she refused to come to the hospital, she remains bedbound, she has not ambulated, he is not sure if she fell and hit her head, patient denies any headache, no neck pain, but she has not gotten out of bed for the last week, she tells me that the only thing that hurts her is her hip, it does not hurt anywhere else, she does not remember the event well, she does not remember how it happened, denies any lightheadedness, no dizziness, no nausea, no vomiting does report poor appetite, does report a history of UTIs, denies history of CAD, no history of chest pain no history of strokes, no history of cardiac arrhythmias, she is down to about 85 pounds Review of Systems 2 Const: Denies: fever(s) Card: Denies: chest pain Resp: Denies: dyspnea GI: Denies: abdominal pain Musc: Reports: extremity pain Neuro: Denies: headache(s) Medications/Allergies Home Medications Medication Instructions Recorded Confirmed Last Taken Type acetaminophen 500 mg tablet 500 mg PO Q6H PRN Pain 07/05/23 07/05/23 Unknown History duloxetine 30 mg capsule,delayed 30 mg PO QAM 07/05/23 07/05/23 07/05/23 History release ibuprofen 200 mg tablet (Advil) 200 mg PO Q6H PRN Pain 07/05/23 07/05/23 Unknown History trazodone 100 mg tablet 100 mg PO BEDTIME 07/05/23 07/05/23 Unknown History Allergies Allergy/AdvReac Type Severity Reaction Status Date / Time acetaminophen Allergy Unknown ADR-Nausea Verified 05/24/23 10:38 Iodinated Contrast Media Allergy Unknown Unknown Verified 05/24/23 10:38 meperidine [From Demerol] Allergy ADR-Dizzine Verified 05/24/23 10:38 ss morphine Allergy ALGY-Swell Verified 05/24/23 10:38 Lip/Tongue/Throat olanzapine [From Zyprexa] Allergy Unknown Verified 07/05/23 13:23 procaine [From Novocain] Allergy Unknown Verified 05/24/23 10:38 propoxyphene [From Darvon] Allergy Unknown Verified 05/24/23 10:38 quinine Allergy ALGY-Swell Verified 05/24/23 10:38 Lip/Tongue/Throat PFSH Acute 2 PFSH: Medical History Hypertension Cystocele with prolapse Urge incontinence of urine Surgical History Hx of breast biopsy Hx of hernia repair History of appendectomy Hx of hysterectomy Family History Mother Diabetes Social History Smoking and tobacco/nicotine status: former use of tobacco/nicotine Quit status (tobacco/nicotine): has quit using Year quit tobacco: 2011 Second hand smoke exposure: No Alcohol intake: current Alcohol intake frequency: few times a week Alcohol type: wine Substance/Drug Use: never Vitals/I&O/Wt Last Vital Signs Temp 97.7 F 07/05/23 12:56 Pulse 75 07/05/23 13:14 Resp 21 H 07/05/23 13:14 BP 172/76 07/05/23 12:56 Pulse Ox 94 07/05/23 13:14 Weight last 48 hrs Weight 40.823 kg Physical Exam 2 Const: COMMON NORMALS: no acute distress ORIENTATION/CONSCIOUSNESS: Yes awake, Yes oriented to person and Yes confused; not oriented to place HENMT: COMMON NORMALS: normocephalic HEAD & SCALP: normocephalic Eye: COMMON NORMALS: Equal, round and reactive pupils present and EOMs intact bilaterally Neck/C-Spine: COMMON NORMALS: full ROM and no lymphadenopathy Resp: COMMON NORMALS: normal respiratory effort, No retractions, No use of accessory muscles and clear to auscultation bilaterally AUSCULTATION: clear to auscultation bilaterally Cardio: COMMON NORMALS: regular rate, regular rhythm, S1 normal heart sound present and S2 normal heart sound present RATE: regular rate RHYTHM: r egular rhythm HEART SOUNDS: S1 normal heart sound present and S2 normal heart sound present GI: COMMON NORMALS: Normal to inspection, nondistended, normoactive bowel sounds present, Soft to palpation and non-tender Extremity: COMMON NORMALS: no calf tenderness and no pedal edema Neuro: COMMON NORMALS: CN's II-XII intact bilaterally OTHER: Patient can follow commands she can squeeze my fingers, she is able to smile for me, able to do other neurologic testing, however does not know the date, she does not remember the year that she was born, she does not remember the events of yesterday, does not remember how she fell Skin: NARRATIVE SKIN EXAM: Has evidence of severe muscle loss, bilateral temples, bilateral arms, bilateral thighs, has evidence of weight loss, Data 07/05/23 13:37 07/05/23 13:37 A&P Assessment and plan (1) Hypertension: (2) Fracture of hip: Qualifiers: Encounter type: initial encounter Fracture type: closed Laterality: r ight Qualified Code(s): S72.001A - Fracture of unspecified part of neck of right femur, initial encounter for closed fracture (3) Fall: (4) Frailty: (5) Protein calorie malnutrition: (6) Physical deconditioning: (7) Low body mass index (BMI): (8) Sarcopenia: (9) Acute encephalopathy: Plan Fall, hip fracture -Pain control, anticoagulation as per orthopedic team -She had an unwitnessed fall, and she has episodes of encephalopathy will order head CT Acute encephalopathy, ? Head CT ? UA Acute anemia -Etiology unclear -Will order iron studies, peripheral smear -During last hospitalization B12, folic acid within normal limits -Transfuse if hemoglobin is less than 7 Elevated troponin ? No chest pain complaints, ? EKG showing evidence of LVH, ? Continue serial EKGs, serial troponins, telemetry monitoring Protein calorie malnutrition, physical deconditioning, muscle loss, consult dietary, PT OT Attestations 2 Medical Necessity Statement*: Patient requires hospitalization, inpatient, greater than 2 minutes, for fall, hip fracture Diagnoses Hypertension I10 Fracture of hip S72.001A Encounter type: initial encounter Fracture type: closed Laterality: right Fall W19.XXXA Frailty R54 Protein calorie malnutrition E46 Physical deconditioning R53.81 Low body mass index (BMI) Sarcopenia M62.84 Acute encephalopathy G93.40
--- NOTE | 2023-07-05 15:01 | CT_ITS ---
WS: [id number] CT HEAD NONCONTRAST HISTORY: fall TECHNIQUE: Contiguous axial imaging performed through the brain in 2.5 mm imaging. Bone and soft tiss ue windows. Sagittal and coronal reformats reviewed. All CT scans at [facility] use at least one of these dose optimization techniques: automated exposure control; mA and/or kV adjustment per pa tient size (includes targeted exams where dose is matched to clinical indication); or iterative recon struction. DLP: 1005.88 mGy.cm COMPARISON: 03/10/2023 No acute intracranial hemorrhage, midline shift or mass effect. Moderate bilateral symmetric atrophy and small vessel ischemic changes. Bilateral cerebellar atrophy. Ventricles: Normal size with no hydrocephalus. No inferior displacement of the cerebellar tonsils. Paranasal sinuses: As visualized are clear. Mastoid air cells: Well pneumatized. Calvarium and scalp: Skull is intact with no soft tissue edema or swelling. Scattered calcifications in the vertebral arteries and the intracranial carotid arteries. IMPRESSION: 1. No acute intracranial hemorrhage. 2. Moderate atrophy and small vessel ischemic disease. 3. No fracture.
[2023-07-05] MEDS: sodium chloride 0.9% 1,000 ML 30 ML IV (16:19)
--- NOTE | 2023-07-05 16:30 | XR_ITS ---
WS: [id number] C-ARM RADIOGRAPHS RIGHT HIP; 4 IMAGES HISTORY: OR PICS; RT TFN COMPARISON: 07/05/2023 Intraoperative imaging during intramedullary screw and short intramedullary cat placement. Distal loc aracelis screw. IMPRESSION: 1. Intraoperative imaging during RIGHT hip fixation.
--- NOTE | 2023-07-05 17:15 | P.CONIM_ITS ---
Providers/Reason For Consult 2 Consulting Physician/Specialty*: MARY Duran- -- orthopedics Dr. Cori Yeh MD -- orthopedics Reason for Consult*: Right hip intertrochanteric femur fracture. Attending Physician: Mukund Wellington MD Primary Care Provider: Jamie Baumann MD History of Present Illness History of Present Illness Yesica Palencia is a 88 year old female who presents to [facility] for a fall last week on Sunday. He is currently bedbound, per her history and 's report since she fell and hurt her left humerus. This was noted earlier in 2022. Patient is currently alert to person and place. She can follow commands but does have episodes of confusion, at bedside helps with the history taking of injury. He states that last Sunday she fell, and she refused to come to the hospital, as she thought it would get better on its own . Today pain significantly increased and the has been contacted 911 and an ambulance brought her to the hospital today for evaluation. Patient appears to be stable, with no acute medical concerns at this time. She denies any shortness of breath, chest pain, headache, lightheadedness, nausea, vomiting, blurred vision or other acute variations from normal. She does have complaints of right hip pain however, this is mild as long as there is no range of motion to the right hip. History of recurrent falls, per her report and 's endorsement. Review of Systems 2 Const: Denies: fever(s), chills, body aches or change in appetite ENMT: Denies: throat pain or dental pain Card: Denies: chest pain Resp: Denies: dyspnea GI: Denies: abdominal pain, nausea, vomiting or diarrhea Musc: Reports: extremity pain, joint pain (R hip), limited range of motion and muscle weakness; Denies: neck pain, back pain or extremity swelling Skin/Breast: Denies: rash Neuro: Denies: headache(s) Medications/Allergies Home Medications Medication Instructions Recorded Confirmed Last Taken Type acetaminophen 500 mg tablet 500 mg PO Q6H PRN Pain 07/05/23 07/05/23 Unknown History duloxetine 30 mg capsule,delayed 30 mg PO QAM 07/05/23 07/05/23 07/05/23 History release ibuprofen 200 mg tablet (Advil) 200 mg PO Q6H PRN Pain 07/05/23 07/05/23 Unknown History trazodone 100 mg tablet 100 mg PO BEDTIME 07/05/23 07/05/23 Unknown History Allergies Allergy/AdvReac Type Severity Reaction Status Date / Time acetaminophen Allergy Unknown ADR-Nausea Verified 05/24/23 10:38 Iodinated Contrast Media Allergy Unknown Unknown Verified 05/24/23 10:38 meperidine [From Demerol] Allergy ADR-Dizzine Verified 05/24/23 10:38 ss morphine Allergy ALGY-Swell Verified 05/24/23 10:38 Lip/Tongue/Throat olanzapine [From Zyprexa] Allergy Unknown Verified 07/05/23 13:23 Penicillins Allergy ALGY-Swell Verified 07/05/23 16:37 Lip/Tongue/Throat procaine [From Novocain] Allergy Unknown Verified 05/24/23 10:38 propoxyphene [From Darvon] Allergy Unknown Verified 05/24/23 10:38 quinine Allergy ALGY-Swell Verified 05/24/23 10:38 Lip/Tongue/Throat Current Medications Generic Name Dose Route Start Last Admin Trade Name Freq PRN Reason Stop Dose Admin Sodium Chloride 1,000 mls @ 30 mls/hr 07/05/23 16:15 07/05/23 16:19 Sodium Chloride 0.9% IV 07/06/23 16:14 30 mls/hr .Q24H BAILEY Administration PFSH Acute 2 PFSH: Medical History (Updated 07/05/23 @ 17:30 by MARY Duran-DARRYN) Closed intertrochanteric fracture of right hip Hypertension Cystocele with prolapse Urge incontinence of urine Surgical History Hx of breast biopsy Hx of hernia repair History of appendectomy Hx of hysterectomy Family History Mother Diabetes Social History Smoking and tobacco/nicotine status: former use of tobacco/nicotine Quit status (tobacco/nicotine): has quit using Year quit tobacco: 2011 Second hand smoke exposure: No Alcohol intake: current Alcohol intake frequency: few times a week Alcohol type: wine Substance/Drug Use: never Vitals/I&O/Wt Last Vital Signs Temp 97.4 F L 07/05/23 16:07 Pulse 72 07/05/23 16:07 Resp 18 07/05/23 16:07 BP 144/74 07/05/23 16:07 Pulse Ox 96 07/05/23 16:07 O2 Del Method Room Air 07/05/23 16:07 Weight last 48 hrs Weight 90 lb Physical Exam 2 Const: COMMON NORMALS: no acute distress, average body habitus, patient oriented x3, no limitations, alert and well nourished GENERAL APPEARANCE: c ooperative; not anxious and not combative ORIENTATION/CONSCIOUSNESS: Yes awake, Yes oriented to person, Yes oriented to place and Yes oriented to time HENMT: COMMON NORMALS: normocephalic and atraumatic HEAD & SCALP: n ormocephalic and atraumatic Resp: COMMON NORMALS: normal respiratory effort and clear to auscultation bilaterally AUSCULTATION: clear to auscultation bilaterally Cardio: COMMON NORMALS: regular rate, regular rhythm, S1 normal heart sound present and S2 normal heart sound present RATE: regular rate RHYTHM: r egular rhythm HEART SOUNDS: S1 normal heart sound present and S2 normal heart sound present Extremity: RIGHT LOWER EXTREMITY: Yes hip joint Right hip: Yes inspection (No swelling or bruising noted. Noted deformity of hip), Yes palpation (Pain with palpation of hip and groin.), Yes ROM (Not assessed secondary to known fracture), Yes neurovascular exam (Sensation intact to light touch distally. 2+ DP and PT pulse) and Yes other (RLE Externally rotated.) and Yes lower leg (No calf pain, swelling or erythema.) Right lower leg: Yes special tests Right lower leg special tests: Heriberto's sign: Negative Neuro: COMMON NORMALS: patient oriented x3 SENSORIUM/ORIENTATION: Yes alert, Yes oriented to person, Yes oriented to place and Yes oriented to time Psych: ATTITUDE: Yes engaged Skin: COMMON NORMALS: no rashes or lesions noted, turgor normal and no jaundice GENERAL SKIN EXAM: no rashes or lesions noted and turgor normal Data 07/05/23 13:37 07/05/23 13:37 Xray Ortho: Radiologist's impression: Date of Service: 07/05/23 Procedure(s): XR hip RT 2-3V wo/w pel* [id number] Accession Number(s): [id number] Report Number: [id number] FINDINGS: Bones/joints: Comminuted fracture of the intertrochanteric proximal right femur with impaction and severe varus deformity. Some fracture fragments are somewhat displaced. Mild bilateral hip arthritis. Moderate lumbar scoliosis with moderate and severe spondylosis. Otherwise, unremarkable. Soft tissues: Otherwise, unremarkable soft tissues. Gastrointestinal tract: Fecal impaction is suspected. Vasculature: Large amount of arterial calcification. XR/XR hip RT 2-3V wo/w pel* [id number] IMPRESSION: 1. Right femoral intertrochanteric fracture. 2. Fecal impaction is suspected. Dictated By: Haroon Vanegas MD A&P Assessment and plan (1) Closed intertrochanteric fracture of right hip: Yesica is an 88-year-old female patient, who presents to the hospital today via EMS post fall approximately 1 week ago. Patient is seen in consultation in the preoperative holding area. Patient presents with severe right hip pain. With physical examination there is noted external rotation and limb length discrepancy to the right lower extremity. Patient does have noted deformity to the right hip. There is no break in the skin, no current bruising or swelling noted. Patient is neurovascularly stable to the right lower extremity with examination. X-rays from the emergency department were reviewed and discussed at length with the patient and her . X-ray images are consistent with right femoral intertrochanteric fracture with displacement and angulation. At this time I recommend proceeding with surgical intervention for right hip open reduction internal fixation of intertrochanteric fracture. Risks versus benefits of surgery were discussed at length with the patient and her . Risks include but are not limited to, general anesthesia risk, wound healing complications, infection, failure to relieve all pain, hardware failure, nerve/blood vessel or tendon injury and failure of fracture healing. Patient and family verbalized understanding and agreement. Consents were signed in the preoperative holding area. Case was discussed with Dr. Cori Yeh MD my collaborating orthopedic surgeon. Patient will be taken to surgery [facility], July 05, 2023 for the above listed surgery. Patient will be admitted to hospital for further follow-up and workup and discharge planning after surgical intervention. Qualifiers: Encounter type: initial encounter Fracture alignment: displaced Qualified Code(s): S72.141A - Displaced intertrochanteric fracture of right femur, initial encounter for closed fracture (2) Fall: Qualifiers: Encounter type: initial encounter Qualified Code(s): W19.XXXA - Unspecified fall, initial encounter (3) Low body mass index (BMI): Consult Attestations 2 Medical Necessity Statement: Patient will require acute medical stay in hospital for medical stabilization and surgical management of right hip intertrochanteric fracture. There will need to be appropriate postoperative and discharge planning completed in this time. Time Spent in Patient Care: Greater than 30 minutes. Coding Level of Care Code Acute Code for g Fwd Diagnoses Closed displaced intertrochanteric fracture of right femur, initial encounter S72.141A Encounter type: initial encounter Fracture alignment: displaced Fall, initial encounter W19.XXXA Encounter type: initial encounter Low body mass index (BMI)
--- NOTE | 2023-07-05 17:38 | P.ANESASSM_ITS ---
Pre-Anesthetic Assessment Height/Weight: Height 1.52 m Weight 40.823 kg Temp Pulse Resp BP Pulse Ox O2 Del Method 97.4 F L 72 18 144/74 96 Room Air 07/05/23 16:07 07/05/23 16:07 07/05/23 16:07 07/05/23 16:07 07/05/23 16:07 07/05/23 16:07 Operation Date: 07/05/23 17:00 Proposed Procedures p Trochanteric Femoral Nail(Right) - Cori Yeh MD Familial anesthetic complications: None Was Beta Fabian taken within 24 hours: N/A Was Clonidine taken within 24 hours: N/A Last intake: > 8 hrs Social No alcohol and No tobacco Exam alert, oriented x 3, clear to auscultation bilaterally and regular rate & rhythm CV/HEM Hypertension Musc/skel frailty Anesthetic Plan ASA status: 3 Anesthesia: General Risk of > 500 ml blood loss (7ml/kg in children): No Medications/Allergies Home Medications Medication Instructions Recorded Confirmed Last Taken Type acetaminophen 500 mg tablet 500 mg PO Q6H PRN Pain 07/05/23 07/05/23 Unknown History duloxetine 30 mg capsule,delayed 30 mg PO QAM 07/05/23 07/05/23 07/05/23 History release ibuprofen 200 mg tablet (Advil) 200 mg PO Q6H PRN Pain 07/05/23 07/05/23 Unknown History trazodone 100 mg tablet 100 mg PO BEDTIME 07/05/23 07/05/23 Unknown History Allergies Allergy/AdvReac Type Severity Reaction Status Date / Time acetaminophen Allergy Unknown ADR-Nausea Verified 05/24/23 10:38 Iodinated Contrast Media Allergy Unknown Unknown Verified 05/24/23 10:38 meperidine [From Demerol] Allergy ADR-Dizzine Verified 05/24/23 10:38 ss morphine Allergy ALGY-Swell Verified 05/24/23 10:38 Lip/Tongue/Throat olanzapine [From Zyprexa] Allergy Unknown Verified 07/05/23 13:23 Penicillins Allergy ALGY-Swell Verified 07/05/23 16:37 Lip/Tongue/Throat procaine [From Novocain] Allergy Unknown Verified 05/24/23 10:38 propoxyphene [From Darvon] Allergy Unknown Verified 05/24/23 10:38 quinine Allergy ALGY-Swell Verified 05/24/23 10:38 Lip/Tongue/Throat Current Medications Generic Name Dose Route Start Last Admin Trade Name Edilma PRN Reason Stop Dose Admin Sodium Chloride 1,000 mls @ 30 mls/hr 07/05/23 16:15 07/05/23 16:19 Sodium Chloride 0.9% IV 07/06/23 16:14 30 mls/hr .Q24H BAILEY Administration PFSH Anesthesia Medical History (Updated 07/05/23 @ 17:30 by ADELINE Duran) Closed intertrochanteric fracture of right hip Hypertension Cystocele with prolapse Urge incontinence of urine Surgical History Hx of breast biopsy Hx of hernia repair History of appendectomy Hx of hysterectomy Family History Mother Diabetes Social History Smoking and tobacco/nicotine status: former use of tobacco/nicotine Quit status (tobacco/nicotine): has quit using Year quit tobacco: 2011 Second hand smoke exposure: No Alcohol intake: current Alcohol intake frequency: few times a week Alcohol type: wine Substance/Drug Use: never Data Anesthesia 07/05/23 13:37 07/05/23 13:37 Short CBC 07/05/23 Range/Units 13:37 WBC 6.18 (3.29-11.43) 10^3/uL Hgb 7.90 L (11.27-16.99) g/dL Hct 25.0 L (36-47) % MCV 90.6 (85-98) fl Plt Count 410 H (157-399) 10^3/cmm Neut % (Auto) 66.9 % Neut # (Auto) 4.13 (1.8-7.7) 10^3/uL BMP 07/05/23 13:37 Sodium 137 Potassium 3.5 Chloride 102 Carbon Dioxide 26 BUN 20 Creatinine 0.7 Glucose 88 Calcium 8.6 Cardiac Enzymes 07/05/23 Range/Units 13:37 Troponin T Baseline 94 H (0-10) ng/L NT-Pro-B Natriuret Pep 1290 H (0-450) pg/mL Liver Function 07/05/23 Range/Units 13:37 Total Bilirubin 0.6 (0.15-1.2) mg/dL AST 11 (0-32) U/L ALT 6 (0-33) U/L Alkaline Phosphatase 119 H (35-105) U/L Albumin 3.3 L (3.5-5.2) g/dL Coags 07/05/23 13:37 ESR 11 PT 13.80 INR 1.03 C-Reactive Protein 18.0 H Cardiac Studies: 2 No Data to Display
[2023-07-05 17:51] LABS: Ferritin 194 ng/mL (15-150); Iron 39 ug/dL (37-145)
[2023-07-05] MEDS: ceFAZolin 1,000 MG in sodium chloride 0.9% (plus) 50 ML 100 MG IV (19:34)
[2023-07-05 19:37] LABS: LAB Peripheral Smear Sent for Review
[2023-07-05 20:05] LABS: Add Urine Microscopic? YES; Bilirubin Urine Neg (Negative); Blood Urine 2+ (Negative); Glucose Urine UA Norm (Normal); Ketones Urine Negative (Negative); Leukocyte Esterase Urine 2+ (Negative); Nitrate Urine Negative (Negative); Protein Urine Trace (Negative); Specific Gravity, Urine 1.025 (1.005-1.030); Urine Appearance Cloudy (CLEAR); Urine Color Dark Yellow (Yellow); Urobilinogen Urine Norm (Negative); pH Urine 6 (5-7)
[2023-07-05 20:17] LABS: Add Urine Culture? Yes; Bacteria Urine 1+ /hpf; Mucus Urine 1+ /hpf; Squamous Epithelial Cell Urine 0-4 /hpf (0-5); Transitional Epi Cells Urine 0-4 /hpf; WBC Urine TOO NUMEROUS TO CNT /hpf (0-5)
[2023-07-05] MEDS: ceFAZolin 1,000 mg SDV 1000 MG IRRIGATION (20:20)
[2023-07-05] MEDS: lidocaine-epi 1% 20 mL INJ 15 ML INJECTION (20:20)
--- NOTE | 2023-07-05 21:25 | ANE.PACU2 ---
Inpatient post-anesthesia follow up: Airway intact: Yes Vital signs: Temperature 97.9 F Pulse Rate 87 Respiratory Rate 14 Blood Pressure 112/64 Pulse Oximetry 100 Oxygen Delivery Me thod Nasal Cannula Oxygen Flow Rate 2.5 Fraction of Inspir ed Oxygen Hydration adequate: Yes Nausea and vomiting: No Pain level: 1 Mental status: Baseline
--- NOTE | 2023-07-05 21:28 | PM.OP ---
Operative Report Date of procedure: July 05, 2023 Pre-op diagnosis: Right intertrochanteric hip fracture, displaced and angulated Post-op diagnosis: Right intertrochanteric hip fracture, displaced and angulated Post-op findings: Severely comminuted displaced angulated right intertrochanteric hip fracture Procedure done: Open reduction internal fixation right intertrochanteric hip fracture Implants: The [place] gamma 3 trochanteric nail system with a size 11 mm x 180 mm x 125 degree trochanteric nail with a lag screw size 10.5 mm x 85 mm, and a 5 mm x 35 mm distal lag screw Specimens removed/disposition: None Pathology: None Surgeon: Cori Yeh MD Payroll Administrative Assistant: None Anesthesia: General (Per LMA, ASA 3) Estimated blood loss (mL): 25 IV fluids (mL): 600 Urine output (mL): 150 Complications: None Findings: Comminuted, angulated, and displaced right intertrochanteric hip fracture Condition: stable Disposition: PACU (Then to floor for postoperative rehabilitation and pain management) Brief History: This 88-year-old presented to the urgency department today complaining of significant right hip pain. The patient stated that previously, she had fallen last week on Sunday, but she refused to come to the hospital. Her pain significantly increased, and she presented today to the emergency department. She complained of only mild pain as long as there was no range of motion. She is confused and has recurrent falls per her . Upon presentation to the emergency department, she was found to have a right intertrochanteric hip fracture which was significantly displaced and angulated. Risk and complications of the patient's surgery were explained in detail to the patient and to her . Consents were signed and questions were answered. Procedure: Patient is brought to the operating theater. After undergoing adequate general anesthesia per LMA, ASA 3, the patient was transferred to the fracture table, positioned on the table and fluoroscopic guidance obtained throughout the surgical procedure. Prior to the commencement of the surgical procedure, a surgical pause was performed. At the time of the surgical pause, we confirmed the site and side of surgery as well as preoperative surgical markings and appropriate and timely administration of IV antibiotics, Ancef 1 g. Availability of equipment was also confirmed. Fluoroscopy was used to confirm the fracture was appropriately reduced in both AP and lateral planes. An incision was then made slightly above the greater trochanter to allow access to the greater trochanter. An awl was used to enter the greater trochanter and a guidewire was subsequently placed. Once the guidewire was confirmed to be in appropriate position in AP and lateral planes, reaming was accomplished over this to allow for the proximal diameter of the nail. Guidewire was then removed. An 11 mm x 180 mm x 125 degree gamma 3 trochanteric nail nail was placed into appropriate position with positioning being confirmed in AP and lateral planes on the x-ray. It passed without difficulty. Guidewire was then passed through the jigging system into the femoral head. We wanted to be center or slightly inferior and posterior to center. Guidewire was placed into appropriate position. Once the guidewire was in appropriate position and this position was confirmed by x-ray. This was then measured and we chose a 10.5 mm x 85 mm lag screw. We reamed to allow for the lag screw to be placed. The 85 mm lag screw was then passed into the femoral head through the trochanteric nail. This was passed uneventfully and again position was confirmed in AP and lateral planes. Compression was obtained under fluoroscopic guidance. The set screw was then placed in position, tightened completely, and subsequently backed off one-quarter turn. The construct was left in position and attention was directed distally. Cannulas were again used to determine appropriate placement for the distal screw. This was placed in position without difficulty. It was measured off of the drill. The appropriate length screw was then obtained and placed in position without difficulty. Once the screw was in position, we confirmed appropriate placement of the components, and we removed the jigging system. Attention was then directed to closure. The hip was copiously irrigated with normal saline with antibiotics. Following this it was dried and closed. Tensor fascia giovana was closed with 0 Vicryl in an interrupted fashion. Local anesthetic was infused. Subcutaneous tissues were closed with 2-0 Monocryl, and the skin was closed with a continuous 3-0 Monocryl subcuticular stitch. This was then covered with Dermabond, Steri-Strips, and OpSite. The patient was removed from the fracture table and returned to recovery in satisfactory condition. The patient will be discharged to the floor for postoperative rehabilitation and pain management. There were no specimens obtained. Related Problem List Diagnoses (1) Closed intertrochanteric fracture of right hip:
[2023-07-05 22:55] LABS: Estmated Average Glucose 94; Hemoglobin A1C 4.9 % (4.0-6.0)
[2023-07-05] MEDS: cefTRIAXone 1,000 MG in sodium chloride 0.9% (plus) 50 ML 100 MG IV (22:56)
[2023-07-05] MEDS: trazodone 100 mg Tablet PO (22:57)
[2023-07-05] MEDS: sodium chloride 0.9% 1,000 ML 75 ML IV (22:57)
[2023-07-05 22:59] LABS: Chol HDL Ratio 3.76 mg/dL (0.0-4.40); Cholesterol 169 mg/dL (0-200); HDL Cholesterol 45 mg/dL (60-100); LDL Cholesterol Calculated 94 mg/dL (50-129); LDL HDL Ratio 2.09 RATIO (0.00-3.22); Thyroid Stimulating Hormone 8.45 uIU/mL (0.27-4.20); Triglycerides 152 mg/dL (0-150)
[2023-07-05 23:02] LABS: Troponin T (5th) Once 73 ng/L (0-10)
[2023-07-06] VITALS (12 sets, daily range): BP systolic 107–143; BP diastolic 57–74; PULSE 72–90; RESP 14–18; TEMP 36.6–36.9; O2SAT 97–100; BMI 17.6
[2023-07-06 06:09] LABS: Basophils % 0.2 %; Eosinophils % 0.1 %; Hematocrit 23.3 % (36-47); Lymphocytes # 0.5 10^3/uL (0.8-4.8); Lymphocytes % 5.4 %; Mean Corpuscular HGB Conc 31.3 g/dL (30-55); Mean Corpuscular Hemoglobin 28.6 pg (27-33); Mean Corpuscular Volume 91.4 fl (85-98); Mean Platelet Volume 8.7 fL (7.4-10.4); Monocytes # 0.3 10^3/uL (0.2-0.9); Neutrophils # 8.51 10^3/uL (1.8-7.7); Neutrophils % 90.7 %; Nucleated Red Blood Cells % 0 %; Platelet Count 447 10^3/cmm (157-399); Red Blood Count 2.55 10^6/uL (3.85-5.65); White Blood Count 9.39 10^3/uL (3.29-11.43)
[2023-07-06] MEDS: duloxetine 30 mg Capsule PO (06:09)
[2023-07-06] MEDS: pantoprazole 40 mg SDV IVP (06:09)
[2023-07-06 06:44] LABS: Alanine Aminotransferase 6 U/L (0-33); Albumin Level 3.1 g/dL (3.5-5.2); Alkaline Phosphatase 120 U/L (35-105); Anion Gap 16.3 (5-19); Aspartate Amino Transferase 12 U/L (0-32); Blood Urea Nitrogen 22 mg/dL (8-23); Calcium 8.1 mg/dL (8.5-10.5); Carbon Dioxide 22 mmol/L (22-29); Chloride 105 mmol/L (98-107); Creatinine Clr Calc Pharmacy 34.1232; Globulin 2.4 g/dL (1.3-4.6); Glucose 105 mg/dL (65-115); Osmolality Calculated 292 mOsm/kg (285-295); Phosphorus 4.2 mg/dL (2.5-4.5); Potassium 4.3 mmol/L (3.5-5.1); Sodium 139 mmol/L (136-145); Total Bilirubin 0.4 mg/dL (0.15-1.2); Total Protein 5.5 g/dL (6.6-8.7)
[2023-07-06 08:19] LABS: Free T4 Free Thyroxine 1.19 ng/dL (0.82-1.77); T3 Free 1.3 PG/ML (2.0-4.4)
[2023-07-06] MEDS: cefTRIAXone 1,000 MG in sodium chloride 0.9% (plus) 50 ML 100 MG IV (08:38)
--- NOTE | 2023-07-06 09:53 | PC.CHAP ---
Pastoral Care Encounter/Spiritual Assessment Type of Contact [] Declined labor contract analyst visit [] Patient/Family/Request visit [] Outpatient visit [] Follow-up visit [] Physician referral [] Code/Alert [x] Routine visit [] Staff referral [] Actively dying [] Patient sleeping [x] Family support [] [] Out of room [] Palliative care [] [] Receiving care in room [] Pre-surgical visit [] Trauma [] Long length of stay [] ICU visit [] Other: Relational/Emotional Strength [x] Patient feels connected with others/family/visitors/staff [] Distress [] Loneliness/isolation [] Abandonment Spirituality of Patient [x] Person of Xuan [] Attends [facility]itan of their Xuan [x] Believes in Prayer [] Reads Bible or Lutheran materials [] There are Spiritual issues to be addressed Relay Adjuster Interventions [x] Prayer [x] Active listening [x] Non-anxious presence [x] Spiritual/emotional support [] Crisis/trauma care [] Spiritual counseling [] Bereavement support [] Provided bereavement packet [] Provided Bible/devotional materials [] Provided toy/stuffed animal, coloring book to patient or family member [] Provided Communion [] Anointing/[place] [] Salvation [x] Completed spiritual assessment [] Other: Impact on Illness or Injury [] Angry [] Fearful [] Anxious [] Often cries [] Exhaustion [] Unable to work [] Unable to attend presybeterian [] Unable to walk/stand [] Unable to read [] Unable to drive [] Unable to eat/drink [] Unable to sleep [] Unable to be with family [] Patient intubated [] Other: Summary Time spent with patient 10 min
[2023-07-06] MEDS: oxyCODONE 5 mg IR Tab/Cap PO ×2 (10:24→20:57)
--- NOTE | 2023-07-06 13:27 | P.PN_ITS ---
Subjective 2 Subjective: Patient was seen this morning, we discussed her hemoglobin 7.3, will give her 1 unit of blood discussed her UTI continue IV Rocephin, she has not had any pain medication due to allergy to morphine at bedside tells me that she is taking oxycodone without any difficulty currently she is in pain, and would like something to treat her pain, plan to 2.5 L, does not use oxygen at home, no history of respiratory disease Vitals/I&O/Wt Last Vital Signs Temp 97.9 F 07/06/23 04:40 Pulse 87 07/06/23 05:07 Resp 16 07/06/23 10:24 BP 112/64 07/06/23 04:40 Pulse Ox 100 07/06/23 04:40 O2 Del Method Nasal Cannula 07/06/23 04:40 O2 Flow Rate 2.5 07/06/23 04:40 07/05/23 07/06/23 07/06/23 22:59 06:59 14:59 Intake Total 283.5 / 283.5 50 / 333.5 1050 / 1050 Output Total 325 / 325 125 / 450 Balance -41.5 / -41.5 -75 / -116.5 1050 / 1050 Weight last 48 hrs Weight 40.823 kg Weight 40.823 kg Weight 40.823 kg Physical Exam 2 Const: COMMON NORMALS: no acute distress and patient oriented x3 Resp: COMMON NORMALS: normal respiratory effort, No retractions and No use of accessory muscles AUSCULTATION: crackles Cardio: COMMON NORMALS: regular rate, regular rhythm, S1 normal heart sound present and S2 normal heart sound present RATE: regular rate RHYTHM: r egular rhythm HEART SOUNDS: S1 normal heart sound present and S2 normal heart sound present GI: COMMON NORMALS: Normal to inspection, nondistended, normoactive bowel sounds present and non-tender Extremity: COMMON NORMALS: no calf tenderness NARRATIVE EXTREMITY EXAM: 1+ pitting edema Neuro: COMMON NORMALS: patient oriented x3 Psych: COMMON NORMALS: mental status grossly normal Urinary Catheter Management: James: Cath Placed During This Visit: yes Reason for Continuing Indwelling Catheter: Required Immobilization for Trauma or Surgery or Anesthesia Urinary Catheter Date of Insertion: 07/05/23 Urinary Catheter Time of Insertion: 19:25 Data 07/06/23 05:48 07/06/23 05:48 A&P Assessment and plan (1) Hypertension: (2) Fracture of hip: Qualifiers: Encounter type: initial encounter Fracture type: closed Laterality: r ight Qualified Code(s): S72.001A - Fracture of unspecified part of neck of right femur, initial encounter for closed fracture (3) Fall: Qualifiers: Encounter type: initial encounter Qualified Code(s): W19.XXXA - Unspecified fall, initial encounter (4) Frailty: (5) Protein calorie malnutrition: (6) Physical deconditioning: (7) Low body mass index (BMI): (8) Sarcopenia: (9) Acute encephalopathy: (10) NSTEMI (non-ST elevated myocardial infarction): (11) Fluid overload: Plan Fall, hip fracture -Status post surgical invention -Pain control, anticoagulation as per orthopedic team Acute encephalopathy, ? Head CT, no acute findings ? UA, indicated of UTI UTI, continue Rocephin Acute anemia -Etiology unclear -Hemoglobin 7.3, will transfuse 1 unit PRBC, DVT prophylaxis Lovenox -During last hospitalization B12, folic acid within normal limits -Transfuse if hemoglobin is less than 7 Elevated troponin ? No chest pain complaints, ? EKG showing evidence of LVH, ? Continue serial EKGs, serial troponins, telemetry monitoring, cardiac echo Fluid overload, 1 dose of IV Lasix Protein calorie malnutrition, physical deconditioning, muscle loss, consult dietary, PT OT Attestations 2 Medical Necessity Statement*: Plan for today continue telemetry monitoring 1 dose IV Lasix, 1 unit of blood, continue PT OT, Coding Level of Care Code Acute Code for Chg Fwd Diagnoses Hypertension I10 Fracture of hip S72.001A Encounter type: initial encounter Fracture type: closed Laterality: right Fall, initial encounter W19.XXXA Encounter type: initial encounter Frailty R54 Protein calorie malnutrition E46 Physical deconditioning R53.81 Low body mass index (BMI) Sarcopenia M62.84 Acute encephalopathy G93.40 NSTEMI (non-ST elevated myocardial infarction) I21.4 Fluid overload E87.70
--- NOTE | 2023-07-06 13:29 | USCV_ITS ---
EdwardjyotsnaYesica Age: 88 Gender: F : 1935 Exam Date: 07/06/2023 15:47 Ordering Phys: Mukund Wellington MD Technologist: Ricky Crawford Exam Location: [facility] [place] Indication: nstemi BP: 121 / 58 HR: 83 Rhythm: Sinus Technical Quality: Adequate MEASUREMENTS (Male / Female) Normal Values 2D ECHO LVOT Diameter 2.1 cm LV Ejection Fraction MOD 2C 69.7 % LV Ejection Fraction 2C AL 72.0 % LA Diameter 3.4 cm RA Systolic Volume 4C AL 18.7 ml RA Systolic Volume 4C MOD 19.3 ml Aorta at Sinotubular Diameter 2.2 cm IVC Diameter 1.2 cm M-MODE LA Ao Ratio MM 1.0 AV Cusp Separation MM 1.4 cm DOPPLER AV Peak Velocity 182.0 cm/s LVOT Peak Velocity 104.0 cm/s AV Area Cont Eq vti 1.8 cm squared AV Area Cont Eq pk 1.9 cm squared MV Peak Velocity 370.7 cm/s MV Area PHT 4.7 cm squared Mitral E to A Ratio 1.1 TV Peak Velocity 403.5 cm/s TR Peak Velocity 412.0 cm/s TR Peak Gradient 67.9 mmHg TR Mean Velocity 330.0 cm/s TR Mean Gradient 47.6 mmHg TR Velocity Time Integral 102.5 cm PV Peak Velocity 138.0 cm/s RV Ejection Time 0.3 s FINDINGS Left Ventricle Normal left ventricular size and systolic function, EF 70%. No regional wall motion abnormalities. Grade I/IV diastolic dysfunction (abnormal relaxation filling pattern), normal to mildly elevated filling pressures. Right Ventricle The right ventricle is normal in size and function. Right Atrium The right atrium is normal in size. Left Atrium Mildly increased left atrial size. Mitral Valve Thickened mitral valve. Trace mitral valve regurgitation. Mild mitral annular calcification. Aortic Valve Trace aortic valve regurgitation. Tricuspid Valve Moderate tricuspid valve regurgitation. Estimated pulmonary artery peak systolic pressure 71 mmHg with a mean pulmonary artery pressure of 51 mm of Hg Pulmonic Valve Structurally normal pulmonic valve without significant stenosis. There is no pulmonic regurgitation. Pericardium Trivial pericardial effusion. Aorta Normal ascending aorta dimension. IVC Normal inferior vena cava. CONCLUSIONS Normal left ventricular size and systolic function, EF 70%. No regional wall motion abnormalities. Grade I/IV diastolic dysfunction (abnormal relaxation filling pattern), normal to mildly elevated filling pressures. Mildly increased left atrial size. Thickened mitral valve. Trace mitral valve regurgitation. Mild mitral annular calcification. Trace aortic valve regurgitation. Moderate tricuspid valve regurgitation. Severe pulmonary hypertension with an estimated pulmonary artery peak systolic pressure of 71 mmHg and a mean pressure of 51 mmHg Trivial pericardial effusion. No similar previous studies are available for comparison Dr Christal Dior MD [facility] (Electronically Signed) Final Date: 06 July 2023 18:35 S
--- NOTE | 2023-07-06 15:21 | P.PN_ITS ---
Subjective 2 Subjective: The patient is seen in her room with her . She remains confused, but he notes that they have been able to move her much more comfortably than she has been moved in quite a while. He feels that he will be able to take her home and manage her care there at home. Medications: Reviewed: Yes Vitals/I&O/Wt Last Vital Signs Temp 98.0 F 07/06/23 14:32 Pulse 86 07/06/23 14:32 Resp 18 07/06/23 14:32 BP 121/58 07/06/23 14:32 Pulse Ox 100 07/06/23 14:32 O2 Del Method Nasal Cannula 07/06/23 04:40 O2 Flow Rate 2 07/06/23 08:00 07/06/23 07/06/23 07/06/23 06:59 14:59 22:59 Intake Total 50 / 333.5 1050 / 1050 Output Total 125 / 450 Balance -75 / -116.5 1050 / 1050 Weight last 48 hrs Weight 90 lb Weight 90 lb Weight 90 lb Physical Exam 2 Const: COMMON NORMALS: no acute distress and alert GENERAL APPEARANCE: c omfortable ORIENTATION/CONSCIOUSNESS: Yes awake HENMT: COMMON NORMALS: normocephalic and atraumatic HEAD & SCALP: n ormocephalic and atraumatic Eye: GENERAL EYE: appearance normal, both eyes and all related structures Chest: COMMONS NORMALS: normal inspection of the chest Resp: COMMON NORMALS: normal respiratory effort EFFORT & INSPECTION: Yes symmetric chest movement Extremity: RIGHT LOWER EXTREMITY: Yes hip joint (Dressings are dry and intact.) Right hip: Yes ROM (Comfortable gentle range of motion) and Yes neurovascular exam (No evidence of DVT) Neuro: SENSORIUM/ORIENTATION: Yes alert Psych: APPEARANCE: Yes grossly normal ATTITUDE: Yes calm Skin: COMMON NORMALS: no rashes or lesions noted GENERAL SKIN EXAM: no rashes or lesions noted Urinary Catheter Management: James: Cath Placed During This Visit: yes Reason for Continuing Indwelling Catheter: Required Immobilization for Trauma or Surgery or Anesthesia Urinary Catheter Date of Insertion: 07/05/23 Urinary Catheter Time of Insertion: 19:25 Data 07/06/23 18:45 07/06/23 05:48 A&P Assessment and plan (1) Closed intertrochanteric fracture of right hip: Yesica is an 88-year-old female patient, who presented to the hospital yesterday after a fall approximately 1 week prior to admission. There was noted to be physical deformity of leg length discrepancy and external rotation. X- rays demonstrated a right femoral intertrochanteric hip fracture with displacement and angulation that was significant. Plans were made for open reduction internal fixation utilizing a gamma 3 trochanteric nail. Risks and complications were discussed, and the patient tolerated the surgical procedure well. Postoperatively, she was returned to the floor. She is seen with her today who has been managing her care at home, and at this point, he feels she is more comfortable to manipulate in her bed than what she has been over the past several weeks. Plans will be made for discharge to home, but today, she will require further medical evaluation and postoperative treatment prior to discharge. She may be weightbearing as tolerated and have range of motion as tolerated as well. Qualifiers: Encounter type: initial encounter Fracture alignment: displaced Qualified Code(s): S72.141A - Displaced intertrochanteric fracture of right femur, initial encounter for closed fracture Attestations 2 Medical Necessity Statement*: Awaiting medical stabilization prior to discharge to home with family. Coding Level of Care Code Acute Code for g Fwd Diagnoses Closed displaced intertrochanteric fracture of right femur, initial encounter S72.141A Encounter type: initial encounter Fracture alignment: displaced
[2023-07-06] MEDS: FUROsemide 10 mg/mL SDV 4mL 40 MG IVP (17:52)
[2023-07-06 19:08] LABS: Hematocrit 27.5 % (36-47)
[2023-07-06] MEDS: trazodone 100 mg Tablet PO (20:58)
[2023-07-07] VITALS (11 sets, daily range): BP systolic 103–127; BP diastolic 57–71; PULSE 77–87; RESP 16–18; TEMP 36.2–37.1; O2SAT 92–97
[2023-07-07 04:52] LABS: Basophils # 0.1 10^3/uL (0.0-0.1); Basophils % 0.9 %; Eosinophils # 0.3 10^3/uL (0.0-0.8); Eosinophils % 5.1 %; Hematocrit 26.7 % (36-47); Lymphocytes # 1.1 10^3/uL (0.8-4.8); Lymphocytes % 17.3 %; Mean Corpuscular HGB Conc 32.6 g/dL (30-55); Mean Corpuscular Hemoglobin 28.7 pg (27-33); Mean Corpuscular Volume 88.1 fl (85-98); Mean Platelet Volume 8.9 fL (7.4-10.4); Monocytes # 0.4 10^3/uL (0.2-0.9); Neutrophils # 4.53 10^3/uL (1.8-7.7); Neutrophils % 70.1 %; Nucleated Red Blood Cells % 0 %; Platelet Count 404 10^3/cmm (157-399); Red Blood Count 3.03 10^6/uL (3.85-5.65); Red Cell Distribution Width 16.6 % (12.1-15.1); White Blood Count 6.47 10^3/uL (3.29-11.43)
[2023-07-07 05:13] LABS: Alanine Aminotransferase 6 U/L (0-33); Alkaline Phosphatase 112 U/L (35-105); Anion Gap 11.9 (5-19); Aspartate Amino Transferase 17 U/L (0-32); Blood Urea Nitrogen 27 mg/dL (8-23); Calcium 7.9 mg/dL (8.5-10.5); Carbon Dioxide 27 mmol/L (22-29); Chloride 103 mmol/L (98-107); Creatinine Clr Calc Pharmacy 35.0032; Globulin 2.3 g/dL (1.3-4.6); Glucose 105 mg/dL (65-115); Magnesium 1.9 mg/dL (1.7-2.3); Osmolality Calculated 291 mOsm/kg (285-295); Phosphorus 3.2 mg/dL (2.5-4.5); Potassium 3.9 mmol/L (3.5-5.1); Sodium 138 mmol/L (136-145); Total Bilirubin 0.7 mg/dL (0.15-1.2); Total Protein 5.3 g/dL (6.6-8.7)
[2023-07-07] MEDS: oxyCODONE 5 mg IR Tab/Cap PO ×2 (06:38→19:09)
[2023-07-07] MEDS: pantoprazole 40 mg SDV IVP (06:39)
[2023-07-07] MEDS: duloxetine 30 mg Capsule PO (06:39)
[2023-07-07] MEDS: cefTRIAXone 1,000 MG in sodium chloride 0.9% (plus) 50 ML 100 MG IV (07:50)
--- NOTE | 2023-07-07 15:22 | P.PN_ITS ---
Subjective 2 Subjective: Patient was seen this morning, is at bedside, she does report generalized weakness, poor appetite, she tells me she barely got up with physical therapy she hurts in her hip, at bedside does not know how he is getting managed with her at home, he feels that she needs to go to [place] [facility] I had a long discussion with Chloe as initially she was reluctant to go to senior living facility but after extensive discussion, she is more agreeable, Vitals/I&O/Wt Last Vital Signs Temp 97.4 F L 07/07/23 12:41 Pulse 84 07/07/23 12:41 Resp 18 07/07/23 12:41 BP 103/58 07/07/23 12:41 Pulse Ox 92 07/07/23 12:41 O2 Del Method Room Air 07/07/23 12:41 O2 Flow Rate 2 07/06/23 08:00 07/07/23 07/07/23 07/07/23 06:59 14:59 22:59 Intake Total 240 / 2140 530 / 530 240 / 770 Output Total 1600 / 1800 Balance -1360 / 340 530 / 530 240 / 770 Weight last 48 hrs Weight 43.636 kg Weight 40.823 kg Weight 40.823 kg Physical Exam 2 Const: COMMON NORMALS: no acute distress and patient oriented x3 Resp: COMMON NORMALS: normal respiratory effort, No retractions, No use of accessory muscles and clear to auscultation bilaterally AUSCULTATION: clear to auscultation bilaterally Cardio: COMMON NORMALS: regular rate, regular rhythm, S1 normal heart sound present and S2 normal heart sound present RATE: regular rate RHYTHM: r egular rhythm HEART SOUNDS: S1 normal heart sound present and S2 normal heart sound present GI: COMMON NORMALS: Normal to inspection, nondistended, normoactive bowel sounds present and non-tender Extremity: COMMON NORMALS: no pedal edema Neuro: COMMON NORMALS: patient oriented x3 Psych: COMMON NORMALS: mental status grossly normal Urinary Catheter Management: James: Cath Placed During This Visit: yes, but has since been removed by the nurse Reason for Continuing Indwelling Catheter: Decision to DC Catheter Urinary Catheter Date of Insertion: 07/05/23 Urinary Catheter Time of Insertion: 19:25 Date Urinary Catheter Removed: 07/07/23 Time Urinary Catheter Discontinued: 06:25 Data 07/07/23 04:05 07/07/23 04:05 Micro: Microbiology 07/05/23 19:54 Urine Culture - Preliminary Urine,Clean Catch A&P Assessment and plan (1) Hypertension: (2) Fracture of hip: Qualifiers: Encounter type: initial encounter Fracture type: closed Laterality: r ight Qualified Code(s): S72.001A - Fracture of unspecified part of neck of right femur, initial encounter for closed fracture (3) Fall: Qualifiers: Encounter type: initial encounter Qualified Code(s): W19.XXXA - Unspecified fall, initial encounter (4) Frailty: (5) Protein calorie malnutrition: (6) Physical deconditioning: (7) Low body mass index (BMI): (8) Sarcopenia: (9) Acute encephalopathy: (10) NSTEMI (non-ST elevated myocardial infarction): (11) Fluid overload: Plan Fall, hip fracture -Status post surgical invention -Pain control, anticoagulation as per orthopedic team Acute encephalopathy, ? Head CT, no acute findings ? UA, indicated of UTI UTI, continue Rocephin Acute anemia -Etiology unclear -Hemoglobin 8.7, status post 1 unit PRBC, DVT prophylaxis Lovenox -During last hospitalization B12, folic acid within normal limits -Transfuse if hemoglobin is less than 7 Elevated troponin ? No chest pain complaints, ? EKG showing evidence of LVH, ? Continue serial EKGs, serial troponins, telemetry monitoring, cardiac echo Fluid overload, monitor Protein calorie malnutrition, physical deconditioning, muscle loss, consult dietary, PT OT Lovenox for DVT prophylaxis, ? Full code Attestations 2 Medical Necessity Statement*: Patient requires hospitalization, for hip fracture, UTI, acute anemia, elevated troponin Diagnoses Hypertension I10 Fracture of hip S72.001A Encounter type: initial encounter Fracture type: closed Laterality: right Fall, initial encounter W19.XXXA Encounter type: initial encounter Frailty R54 Protein calorie malnutrition E46 Physical deconditioning R53.81 Low body mass index (BMI) Sarcopenia M62.84 Acute encephalopathy G93.40 NSTEMI (non-ST elevated myocardial infarction) I21.4 Fluid overload E87.70
[2023-07-07] MEDS: enoxaparin 40 mg/0.4 mL Syringe SUBCUT (16:05)
[2023-07-07] MEDS: trazodone 100 mg Tablet PO (20:39)
[2023-07-08] VITALS (9 sets, daily range): BP systolic 118–143; BP diastolic 67–70; PULSE 65–84; RESP 15–20; TEMP 36.3–37.2; O2SAT 93–96
[2023-07-08 03:13] LABS: Basophils % 0.7 %; Eosinophils # 0.5 10^3/uL (0.0-0.8); Eosinophils % 8.1 %; Hematocrit 25.6 % (36-47); Lymphocytes % 16.3 %; Mean Corpuscular HGB Conc 31.6 g/dL (30-55); Mean Corpuscular Hemoglobin 28.3 pg (27-33); Mean Corpuscular Volume 89.5 fl (85-98); Mean Platelet Volume 8.5 fL (7.4-10.4); Monocytes # 0.4 10^3/uL (0.2-0.9); Monocytes % 7.4 %; Neutrophils # 3.91 10^3/uL (1.8-7.7); Nucleated Red Blood Cells % 0 %; Platelet Count 330 10^3/cmm (157-399); Red Blood Count 2.86 10^6/uL (3.85-5.65); Red Cell Distribution Width 17.1 % (12.1-15.1); White Blood Count 5.83 10^3/uL (3.29-11.43)
[2023-07-08 03:44] LABS: Alanine Aminotransferase < 5 U/L (0-33); Albumin Level 2.8 g/dL (3.5-5.2); Alkaline Phosphatase 105 U/L (35-105); Aspartate Amino Transferase 12 U/L (0-32); Blood Urea Nitrogen 25 mg/dL (8-23); Calcium 8.3 mg/dL (8.5-10.5); Carbon Dioxide 27 mmol/L (22-29); Chloride 103 mmol/L (98-107); Creatinine Clr Calc Pharmacy 35.0032; Globulin 2.2 g/dL (1.3-4.6); Glucose 107 mg/dL (65-115); Magnesium 1.9 mg/dL (1.7-2.3); Osmolality Calculated 289 mOsm/kg (285-295); Phosphorus 2.9 mg/dL (2.5-4.5); Sodium 137 mmol/L (136-145); Total Bilirubin 0.4 mg/dL (0.15-1.2)
[2023-07-08] MEDS: duloxetine 30 mg Capsule PO (05:07)
[2023-07-08] MEDS: pantoprazole 40 mg SDV IVP (06:07)
[2023-07-08] MEDS: cefTRIAXone 1,000 MG in sodium chloride 0.9% (plus) 50 ML 100 MG IV (07:39)
[2023-07-08] MEDS: oxyCODONE 5 mg IR Tab/Cap PO ×2 (10:56→16:40)
--- NOTE | 2023-07-08 14:03 | P.PN_ITS ---
Subjective 2 Subjective: Patient was seen this morning, is at bedside, she tells me that she has not had a bowel movement as of yet continues to complain of weakness, fatigue, decreased appetite Vitals/I&O/Wt Last Vital Signs Temp 97.5 F L 07/08/23 11:27 Pulse 78 07/08/23 11:27 Resp 18 07/08/23 11:27 BP 118/68 07/08/23 11:27 Pulse Ox 93 07/08/23 11:27 O2 Del Method Room Air 07/08/23 11:27 O2 Flow Rate 2 07/06/23 08:00 07/07/23 07/08/23 07/08/23 22:59 06:59 14:59 Intake Total 600 / 1130 120 / 1250 410 / 410 Balance 600 / 1130 120 / 1250 410 / 410 Weight last 48 hrs Weight 43.743 kg Weight 43.636 kg Physical Exam 2 Const: COMMON NORMALS: no acute distress and patient oriented x3 Resp: COMMON NORMALS: normal respiratory effort, No retractions, No use of accessory muscles and clear to auscultation bilaterally AUSCULTATION: clear to auscultation bilaterally Cardio: COMMON NORMALS: regular rate, regular rhythm, S1 normal heart sound present and S2 normal heart sound present RATE: regular rate RHYTHM: r egular rhythm HEART SOUNDS: S1 normal heart sound present and S2 normal heart sound present GI: COMMON NORMALS: Normal to inspection, nondistended, normoactive bowel sounds present Extremity: COMMON NORMALS: no pedal edema Neuro: COMMON NORMALS: patient oriented x3 Urinary Catheter Management: James: Cath Placed During This Visit: yes, but has since been removed by the nurse Reason for Continuing Indwelling Catheter: Decision to DC Catheter Urinary Catheter Date of Insertion: 07/05/23 Urinary Catheter Time of Insertion: 19:25 Date Urinary Catheter Removed: 07/07/23 Time Urinary Catheter Discontinued: 06:25 Data 07/08/23 03:02 07/08/23 03:02 Micro: Microbiology 07/05/23 19:54 Urine Culture - Final Urine,Clean Catch A&P Assessment and plan (1) Hypertension: (2) Fracture of hip: Qualifiers: Encounter type: initial encounter Fracture type: closed Laterality: r ight Qualified Code(s): S72.001A - Fracture of unspecified part of neck of right femur, initial encounter for closed fracture (3) Fall: Qualifiers: Encounter type: initial encounter Qualified Code(s): W19.XXXA - Unspecified fall, initial encounter (4) Frailty: (5) Protein calorie malnutrition: (6) Physical deconditioning: (7) Low body mass index (BMI): (8) Sarcopenia: (9) Acute encephalopathy: (10) NSTEMI (non-ST elevated myocardial infarction): (11) Fluid overload: Plan Fall, hip fracture -Status post surgical invention -Pain control, anticoagulation as per orthopedic team -Will need group home placement Acute encephalopathy, ? Head CT, no acute findings ? UA, indicated of UTI UTI, continue Rocephin Acute anemia -Etiology unclear -Hemoglobin 8.7, status post 1 unit PRBC, DVT prophylaxis Lovenox -During last hospitalization B12, folic acid within normal limits -Transfuse if hemoglobin is less than 7 Elevated troponin ? No chest pain complaints, ? EKG showing evidence of LVH, ? Continue serial EKGs, serial troponins, telemetry monitoring, cardiac echo Fluid overload, monitor Protein calorie malnutrition, physical deconditioning, muscle loss, consult dietary, PT OT Lovenox for DVT prophylaxis, ? Full code Attestations 2 Medical Necessity Statement*: Patient requires hospitalization for hip fracture requiring group home placement, PT OT Diagnoses Hypertension I10 Fracture of hip S72.001A Encounter type: initial encounter Fracture type: closed Laterality: right Fall, initial encounter W19.XXXA Encounter type: initial encounter Frailty R54 Protein calorie malnutrition E46 Physical deconditioning R53.81 Low body mass index (BMI) Sarcopenia M62.84 Acute encephalopathy G93.40 NSTEMI (non-ST elevated myocardial infarction) I21.4 Fluid overload E87.70
[2023-07-08] MEDS: sennosides-docusate Tablet 1 TAB PO (16:40)
[2023-07-08] MEDS: enoxaparin 40 mg/0.4 mL Syringe SUBCUT (16:41)
[2023-07-08] MEDS: trazodone 100 mg Tablet PO (20:49)
[2023-07-09] VITALS (10 sets, daily range): BP systolic 113–158; BP diastolic 64–75; PULSE 78–84; RESP 14–18; TEMP 36.3–37.1; O2SAT 93–96
[2023-07-09] MEDS: oxyCODONE 5 mg IR Tab/Cap PO ×3 (00:02→13:11)
[2023-07-09 04:55] LABS: Basophils % 0.6 %; Eosinophils # 0.4 10^3/uL (0.0-0.8); Eosinophils % 6.3 %; Hematocrit 26.2 % (36-47); Lymphocytes # 1.1 10^3/uL (0.8-4.8); Lymphocytes % 17.1 %; Mean Corpuscular HGB Conc 31.7 g/dL (30-55); Mean Corpuscular Hemoglobin 28.5 pg (27-33); Monocytes # 0.4 10^3/uL (0.2-0.9); Monocytes % 6.2 %; Neutrophils % 69.5 %; Nucleated Red Blood Cells % 0 %; Platelet Count 362 10^3/cmm (157-399); Red Blood Count 2.91 10^6/uL (3.85-5.65); Red Cell Distribution Width 16.7 % (12.1-15.1); White Blood Count 6.48 10^3/uL (3.29-11.43)
[2023-07-09 05:14] LABS: Alanine Aminotransferase < 5 U/L (0-33); Alkaline Phosphatase 121 U/L (35-105); Anion Gap 12.1 (5-19); Aspartate Amino Transferase 14 U/L (0-32); Blood Urea Nitrogen 23 mg/dL (8-23); Calcium 8.6 mg/dL (8.5-10.5); Carbon Dioxide 26 mmol/L (22-29); Chloride 101 mmol/L (98-107); Creatinine Clr Calc Pharmacy 35.2939; Globulin 2.5 g/dL (1.3-4.6); Glucose 102 mg/dL (65-115); Osmolality Calculated 284 mOsm/kg (285-295); Potassium 4.1 mmol/L (3.5-5.1); Sodium 135 mmol/L (136-145); Total Bilirubin 0.5 mg/dL (0.15-1.2); Total Protein 5.5 g/dL (6.6-8.7)
[2023-07-09] MEDS: duloxetine 30 mg Capsule PO (05:55)
[2023-07-09] MEDS: pantoprazole 40 mg SDV IVP (06:08)
[2023-07-09] MEDS: polyethylene glycol 3350 Pkt 17 gm PO (08:39)
[2023-07-09] MEDS: sennosides-docusate Tablet 1 TAB PO (08:39)
[2023-07-09] MEDS: cefTRIAXone 1,000 MG in sodium chloride 0.9% (plus) 50 ML 100 MG IV (08:39)
--- NOTE | 2023-07-09 10:44 | P.DS_ITS ---
Discharge Providers Date of Admission: 07/05/23 13:50 Date of Discharge: July 09, 2023 Attending Provider at Admission: Mukund Wellington MD Attending Provider at Discharge: Mukund Wellington MD Primary Care Provider: Jamie Baumann MD Diagnoses at Discharge Discharge Diagnosis (1) Hypertension: Status: Acute (2) Fracture of hip: Status: Acute Qualifiers: Encounter type: initial encounter Fracture type: closed Laterality: right Qualified Code(s): S72.001A - Fracture of unspecified part of neck of right femur, initial encounter for closed fracture (3) Fall: Status: Acute Qualifiers: Encounter type: initial encounter Qualified Code(s): W19.XXXA - Unspecified fall, initial encounter (4) Frailty: Status: Acute (5) Protein calorie malnutrition: Status: Acute (6) Physical deconditioning: Status: Acute (7) Low body mass index (BMI): Status: Acute (8) Sarcopenia: Status: Acute (9) Acute encephalopathy: Status: Acute (10) NSTEMI (non-ST elevated myocardial infarction): Status: Acute (11) Fluid overload: Status: Acute Reason for Visit Reason for Visit: possible hip fracture Hospital Course Hospital Course Yesica Palencia is a 88 year old female with a past medical history of anemia, hypertension, who presents to [facility] for a fall last week on Sunday, patient is currently alert to person, to place, not to time she can follow commands but does have episodes of confusion, at bedside helps with the history taking, he tells me that last Sunday she fell, and she refused to come to the hospital, she remains bedbound, she has not ambulated, he is not sure if she fell and hit her head, patient denies any headache, no neck pain, but she has not gotten out of bed for the last week, she tells me that the only thing that hurts her is her hip, it does not hurt anywhere else, she does not remember the event well, she does not remember how it happened, denies any lightheadedness, no dizziness, no nausea, no vomiting does report poor appetite, does report a history of UTIs, denies history of CAD, no history of chest pain no history of strokes, no history of cardiac arrhythmias, she is down to about 85 pounds Patient was admitted to [facility] for fall, right hip fracture, status post surgical intervention, discharged to [facility] for rehab For DVT prophylaxis, discharged on aspirin 81 mg once daily, due to patient's low body weight BMI 19.2, and acute on chronic anemia, requiring transfusion 1 unit PRBC during hospitalization, she was not discharged on a higher dose of aspirin or Lovenox, discussed this with orthopedic service, discussed this with patient, discussed risk and benefits, they voiced understanding, all question answered, agreed to proceed Acute on chronic anemia, concerning for possible myelodysplasia, patient required 1 unit PRBC during the hospitalization, will discharge with a follow-up with hematology as outpatient Patient has protein calorie malnutrition, severe physical deconditioning, muscle loss, frailty, discharge to [facility] facility, instructed to take at least 2 Ensure drinks a day, PT OT at [facility] facility Physical Exam Const: COMMON NORMALS: no acute distress and patient oriented x3 Resp: COMMON NORMALS: normal respiratory effort, No retractions, No use of accessory muscles and clear to auscultation bilaterally AUSCULTATION: clear to auscultation bilaterally Cardio: COMMON NORMALS: regular rate, regular rhythm, S1 normal heart sound present and S2 normal heart sound present RATE: regular rate RHYTHM: regular rhythm HEART SOUNDS: S1 normal heart sound present and S2 normal heart sound present GI: COMMON NORMALS: Normal to inspection, nondistended, normoactive bowel sounds present and non-tender Extremity: COMMON NORMALS: no pedal edema Neuro: COMMON NORMALS: patient oriented x3 Psych: COMMON NORMALS: mental status grossly normal Urinary Catheter Management: James: Cath Placed During This Visit: yes, but has since been removed by the nurse Reason for Continuing Indwelling Catheter: Decision to DC Catheter Urinary Catheter Date of Insertion: 07/05/23 Urinary Catheter Time of Insertion: 19:25 Date Urinary Catheter Removed: 07/07/23 Time Urinary Catheter Discontinued: 06:25 Discharge Data Studies Completed and Pending Completed Studies During Hospitalization Category Date Time Status CT head wo con* [id number] Stat Cat Scan 07/05/23 15:01 Completed CXRP [XR chest 1V portable [id number]] Stat Exams 07/05/23 13:18 Completed XR hip RT 2-3V wo/w pel* [id number] Routine Exams 07/05/23 16:30 Completed XR hip RT 2-3V wo/w pel* [id number] Stat Exams 07/05/23 12:59 Completed XR knee RT 1-2V [id number] Stat Exams 07/05/23 12:59 Completed CV. echo complete* [id number] Routine Ultrasound 07/06/23 13:29 Completed Pending at discharge Category Date Time Status Complete Blood Count w/Auto AM LABS Lab 07/10/23 04:00 Ordered Complete Blood Count w/Auto AM LABS Lab 07/11/23 04:00 Ordered Comprehensive Metabolic Panel AM LABS Lab 07/10/23 04:00 Ordered Comprehensive Metabolic Panel AM LABS Lab 07/11/23 04:00 Ordered Occult Blood Stool [Immunochemical Fecal OCB] Routine Lab 07/05/23 22:06 Uncollected Radiology Impressions Knee X-Ray 07/05/23 12:59 IMPRESSION: No acute findings. Chest X-Ray 07/05/23 13:18 IMPRESSION: No acute disease. Laboratory Results WBC 6.48 10^3/uL (3.29-11.43) 07/09/23 04:41 RBC 2.91 10^6/uL (3.85-5.65) L 07/09/23 04:41 Hgb 8.30 g/dL (11.27-16.99) L 07/09/23 04:41 Hct 26.2 % (36-47) L 07/09/23 04:41 MCV 90.0 fl (85-98) 07/09/23 04:41 MCH 28.5 pg (27-33) 07/09/23 04:41 MCHC 31.7 g/dL (30-55) 07/09/23 04:41 RDW 16.7 % (12.1-15.1) H 07/09/23 04:41 Plt Count 362 10^3/cmm (157-399) 07/09/23 04:41 MPV 9.0 fL (7.4-10.4) 07/09/23 04:41 Neut % (Auto) 69.5 % 07/09/23 04:41 Lymph % (Auto) 17.1 % 07/09/23 04:41 Mcdonald % (Auto) 6.2 % 07/09/23 04:41 Eos % (Auto) 6.3 % 07/09/23 04:41 Baso % (Auto) 0.6 % 07/09/23 04:41 Neut # (Auto) 4.50 10^3/uL (1.8-7.7) 07/09/23 04:41 Lymph # (Auto) 1.1 10^3/uL (0.8-4.8) 07/09/23 04:41 Mcdonald # (Auto) 0.4 10^3/uL (0.2-0.9) 07/09/23 04:41 Eos # (Auto) 0.4 10^3/uL (0.0-0.8) 07/09/23 04:41 Baso # (Auto) 0.0 10^3/uL (0.0-0.1) 07/09/23 04:41 Nucleated RBC % (auto) 0 % 07/09/23 04:41 Nucleated RBCs # 0.0 /100WBC 07/09/23 04:41 Peripher Smr Path Cons Sent for review 07/05/23 13:37 ESR 11 mm/hr (0-15) 07/05/23 13:37 PT 13.80 SECONDS (12.1-14.9) 07/05/23 13:37 INR 1.03 (0.8-1.2) 07/05/23 13:37 Sodium 135 mmol/L (136-145) L 07/09/23 04:41 Potassium 4.1 mmol/L (3.5-5.1) 07/09/23 04:41 Chloride 101 mmol/L (98-107) 07/09/23 04:41 Carbon Dioxide 26 mmol/L (22-29) 07/09/23 04:41 Anion Gap 12.1 (5-19) 07/09/23 04:41 BUN 23 mg/dL (8-23) 07/09/23 04:41 Creatinine 0.6 mg/dL (0.5-0.9) 07/09/23 04:41 GFR Calculation Not Reportable 07/09/23 04:41 Glucose 102 mg/dL (65-115) 07/09/23 04:41 Estimat Average Glucose 94 07/05/23 22:23 Hemoglobin A1c 4.9 % (4.0-6.0) 07/05/23 22:23 Calculated Osmolality 284 mOsm/kg (285-295) L 07/09/23 04:41 Lactic Acid 0.7 mmol/L (0.5-2.2) 07/05/23 13:37 Calcium 8.6 mg/dL (8.5-10.5) 07/09/23 04:41 Phosphorus 2.9 mg/dL (2.5-4.5) 07/08/23 03:02 Magnesium 1.9 mg/dL (1.7-2.3) 07/08/23 03:02 Iron 39 ug/dL (37-145) 07/05/23 13:37 Ferritin 194 ng/mL (15-150) H 07/05/23 13:37 Total Bilirubin 0.5 mg/dL (0.15-1.2) 07/09/23 04:41 AST 14 U/L (0-32) 07/09/23 04:41 ALT < 5 U/L (0-33) 07/09/23 04:41 Alkaline Phosphatase 121 U/L (35-105) H 07/09/23 04:41 Troponin T 5th Gen ng/L 73 ng/L (0-10) H 07/05/23 22:23 Troponin T Baseline 94 ng/L (0-10) H 07/05/23 13:37 C-Reactive Protein 18.0 mg/L (0.0-4.9) H 07/05/23 13:37 NT-Pro-B Natriuret Pep 1290 pg/mL (0-450) H 07/05/23 13:37 Total Protein 5.5 g/dL (6.6-8.7) L 07/09/23 04:41 Albumin 3.0 g/dL (3.5-5.2) L 07/09/23 04:41 Globulin 2.5 g/dL (1.3-4.6) 07/09/23 04:41 Triglycerides 152 mg/dL (0-150) H 07/05/23 22:23 Cholesterol 169 mg/dL (0-200) 07/05/23 22:23 LDL Cholesterol, Calc 94 mg/dL (50-129) 07/05/23 22:23 HDL Cholesterol 45 mg/dL (60-100) L 07/05/23 22:23 LDL/HDL Ratio 2.09 RATIO (0.00-3.22) 07/05/23 22:23 Cholesterol/HDL Ratio 3.76 mg/dL (0.0-4.40) 07/05/23 22:23 Procalcitonin 0.06 ng/mL (0-0.5) 07/05/23 13:37 TSH 8.45 uIU/mL (0.27-4.20) H 07/05/23 22:23 Free T4 1.19 ng/dL (0.82-1.77) 07/06/23 05:48 Free T3 1.3 PG/ML (2.0-4.4) L 07/06/23 05:48 Urine Color Dark yellow (Yellow) 07/05/23 19:54 Urine Appearance Cloudy (CLEAR) A 07/05/23 19:54 Urine pH 6 (5-7) 07/05/23 19:54 Ur Specific [place] 1.025 (1.005-1.030) 07/05/23 19:54 Urine Protein Trace (Negative) 07/05/23 19:54 Urine Glucose (UA) Norm (Normal) 07/05/23 19:54 Urine Ketones Negative (Negative) 07/05/23 19:54 Urine Blood 2+ (Negative) H 07/05/23 19:54 Urine Nitrate Negative (Negative) 07/05/23 19:54 Urine Bilirubin Neg (Negative) 07/05/23 19:54 Urine Urobilinogen Norm mg/dL (Negative) 07/05/23 19:54 Ur Leukocyte Esterase 2+ (Negative) H 07/05/23 19:54 Urine RBC 5-10 /hpf (0-2) H 07/05/23 19:54 Urine WBC Too numerous to cnt /hpf (0-5) H 07/05/23 19:54 Ur Squamous Epith Cells 0-4 /hpf (0-5) H 07/05/23 19:54 Ur Transition Epith Cell 0-4 /hpf 07/05/23 19:54 Amorphous Sediment Not Reportable 07/05/23 19:54 Urine Bacteria 1+ /hpf (NONE) H 07/05/23 19:54 Urine Mucus 1+ /hpf 07/05/23 19:54 Blood Type B Positive 07/06/23 08:30 Rho(D) Type Rh positive 07/06/23 08:30 Antibody Screen Negative 07/06/23 08:30 Crossmatch See Detail 07/06/23 08:30 Vitals Last Vital Signs Temp 97.4 F L 07/09/23 07:29 Pulse 84 07/09/23 07:29 Resp 18 07/09/23 07:29 BP 158/74 07/09/23 07:29 Pulse Ox 95 07/09/23 07:29 O2 Del Method Room Air 07/09/23 07:29 O2 Flow Rate 2 07/06/23 08:00 Discharge Plan Discharge Patient Disposition: Xfer SNF Condition: Stable Prescriptions: New polyethylene glycol 3350 17 gram Powder In Packet 17 g PO DAILY PRN (Reason: constipation) 30 Days Qty: 30 0RF sennosides-docusate sodium [Stool Softener-Laxative] 8.6-50 mg Tablet 1 tab PO BID 30 Days Qty: 60 0RF aspirin 81 mg capsule 81 mg PO DAILY 30 Days Qty: 30 0RF Continued Tylenol Ex Str Rapid Release 500 mg Tablet 500 mg PO Q6H PRN (Reason: Pain) trazodone 100 mg tablet 100 mg PO BEDTIME duloxetine 30 mg capsule,delayed release(DR/EC) 30 mg PO QAM Discontinued Advil 200 mg Tablet 200 mg PO Q6H PRN (Reason: Pain) Discharge Orders: Discharge Order (Routine); Ordered 07/09/23 Ordered By: Mukund Wellington Referrals: Jamie Baumann MD [Primary Care Provider] - 07/16/23 2:20 pm Cori Yeh MD [Physician] - 07/23/23 11:00 am Discharge Diet: Advance as tolerated Discharge Activity: Increase activity as tolerated Activity Restrictions/Additional Instructions: - Recheck hemoglobin in 48 hours, hemoglobin on discharge 8.3 Discharge Attestations Time Spent in Discharge Care*: greater than 30 min Quality Metrics Clinical Quality Measures [ No reported AMI, CVA or VTE this stay] Coding Level of Care Code 78235 Total time (in minutes) for Discharge: 45 Diagnoses Hypertension I10 Fracture of hip S72.001A Encounter type: initial encounter Fracture type: closed Laterality: right Fall, initial encounter W19.XXXA Encounter type: initial encounter Frailty R54 Protein calorie malnutrition E46 Physical deconditioning R53.81 Low body mass index (BMI) Sarcopenia M62.84 Acute encephalopathy G93.40 NSTEMI (non-ST elevated myocardial infarction) I21.4 Fluid overload E87.70
--- NOTE | 2023-07-09 11:19 | PC.SOCIAL ---
IMM Updated Updated pt & on IMM. No questions voiced. Provided pt a copy. Initialed, dated, & timed copy in chart.
[2023-07-09 11:53] LABS: SARS Covid-2 Antigen negative (Negative)
--- NOTE | 2023-07-09 13:01 | PC.NURSE ---
Nurse Brissa JOSEPH, called report to [facility] and spoke with the oncoming nurse. All questions answered at this time.
--- NOTE | 2023-07-09 13:52 | PC.NURSE ---
Discharge delay- awaiting ride from [facility]. They will call floor when ready.
[2023-07-09] MEDS: enoxaparin 40 mg/0.4 mL Syringe SUBCUT (16:40)
== END 2023-07-09 18:04 | disposition skilled nursing facility (03) | DRG 480 ==
LOC: ER 13:52 → MEDSURG 14:52
PROVIDERS: Specialist; Admitting Provider Family Medicine; Emergency Provider Emergency Medicine; PCP Internal Medicine; Visit Provider Family Medicine
PROC: 0QH636Z Insertion of Intramedullary Internal Fixation Device into Right Upper Femur, Percutaneous Approach (ICD-10-PCS; CPT 27245; principal; 2023-07-05 17:00)
DX: S72.141A Displaced intertrochanteric fracture of right femur, initial encounter for closed fracture (principal); I21.4 Non-ST elevation (NSTEMI) myocardial infarction; E46 Unspecified protein-calorie malnutrition; Z68.1 Body mass index [BMI] 19.9 or less, adult; G93.40 Encephalopathy, unspecified; N39.0 Urinary tract infection, site not specified; W19.XXXA Unspecified fall, initial encounter; D64.9 Anemia, unspecified; I10 Essential (primary) hypertension; M62.84 Sarcopenia; E87.70 Fluid overload, unspecified; Z11.52 Encounter for screening for COVID-19; Z87.440 Personal history of urinary (tract) infections; Z87.891 Personal history of nicotine dependence
CPT/HCPCS: 36415; 36430; 51702; 70450; 71045; 73502; 73560; 73562; 76000; 80053; 80061; 80503; 81001; 82728; 83036; 83540; 83605; 83735; 83880; 84100; 84145; 84439; 84443; 84481; 84484; 85014; 85018; 85025; 85610; 85651; 86140; 86850; 86900; 86920; 87086; 87426; 93005; 93306; 96372; 97110; 97162; 97167; 97530; 99285; C1713; C9113; J0360; J0690; J0696; J1100; J1200; J1650; J1885; J1940; J2405; J2704; J3010; J3490; J7030; P9040

== ENCOUNTER → 2023-07-23 10:44 | Outpatient (BNVA) | payer OTHER, SELFPAY | PROVIDERS: PCP Internal Medicine; Visit Provider Nurse Practitioner | DX: Z98.890 Other specified postprocedural states (principal); S72.141D Displaced intertrochanteric fracture of right femur, subsequent encounter for closed fracture with routine healing; X58.XXXD Exposure to other specified factors, subsequent encounter | CPT/HCPCS: 99024 ==